=== PATIENT | female | born 1955 | race Caucasian/White ===

== ENCOUNTER 2023-10-08 14:30 | Outpatient (AMB) | payer MEDICARE, MEDICAID, SELFPAY ==
--- NOTE | 2023-10-08 15:12 | A.OFFPSYCH_ITS ---
Intake Intake Visit Reasons: depression, WARD (generalized anxiety disorder) Intake Note: 67 year old woman presenting with history of increased Depression and PTSD with panic attacks seeking medication management evaluation Dump Operator Required: No Allergies No Known Allergies Allergy (Verified 10/08/23 15:47) HPI- Psychiatric Chief Complaint: depression, WARD (generalized anxiety disorder) HPI Narrative: Pt reports she stopped the lexapro because it caused her to feel numb; she reports still feeling anxious; we discussed her taking 2.5 mg of lexapro and see if that helps with anxiety. Pt reports she was in the hospital when last appt scheduled; she was there for kidney stones and she had complications so it was longer than expected; She was then in hospital for c-diff infection. she is feeling better now; she reports coping well overall. she has financial stress. Pt reports she is sleeping well with ambien. denies side effects; she denies any sedation or dizziness. no SI or HI; no marija; no psychosis; Pt very worried bout her 94 yo mother. Pt will see Dr Dung Nicholas for her memory this week. Past Psychiatric History: long history of mood disorder since early . Has struggled with anxiety and depression for most of her adult life; Has been in treatment for years most recently at [facility] [address] [facility] none Panic attacks: Yes Agoraphobia: No Separation anxiety disorder: No Social phobia: No Specific phobia: No Hypochondriasis: No Body dysmorphic disorder: No Obsessive compulsive disorder: No Generalized anxiety: Yes Post traumatic stress disorder: Yes Acute stress disorder: No Previous psychiatric history: Yes Previous inpatient psychiatric hospitalization: Yes Other previous psychiatric treatment programs: none History of suicidal ideation: Yes History of suicide attempt: No Medically hospitalized: Yes History of self injurious behavior: Yes History of violence: No Current/previous psychiatrist: rhona Current/previous therapist: none Subjective Subjective Subjective Medication Compliance: Yes Side effects from medications: No Review of Systems Medical Review of Systems: unchanged Review of Systems Review of Systems Yes all other systems are reviewed and are negative Mental Status Exam Mental Status Exam Narrative: pt neatly and casually dressed in wheelchair due to atroohy and weakness after prolonged c-diff infection Patient Appearance: Appropriate Patient Orientation: Person, Place and Situation Level of Consciousness: Awake Patient Behavior: Appropriate Mood Description: Calm Affect Description: Calm Patient Cognition Impaired: No Ability to Follow Directions: Good Speech Pattern: Clear Memory Description: Episodic Impaired Hallucinations: None Delusions: Not Present Thought Process: Intact and Goal Oriented Thought Content: positive for Intact and positive for Goal Oriented Judgement: Fair Assessment and Plan Assessment & Plan (1) Generalized anxiety disorder: Code(s): F41.1 - Generalized anxiety disorder (2) Major depressive disorder, recurrent, moderate: Status: Acute Code(s): F33.1 - Major depressive disorder, recurrent, moderate (3) Chronic post-traumatic stress disorder (PTSD): Status: Acute Code(s): F43.12 - Post-traumatic stress disorder, chronic Plan continue wellbutrin XL 300mg qam add lexapro 2.5mg daily valium 2 mg qd prn anxiety (reduction from 5mg ) zolpidem 5mg at bedtime return in 3 months referred to [facility] [address] for therapy Medications: New zolpidem 5 mg PO BEDTIME PRN 30 tabs 3RF sleep diazepam 2 mg PO DAILY PRN 30 tabs 2RF sleep escitalopram oxalate (Lexapro) 2.5 mg (1/2 x 5 mg) PO DAILY 15 tabs 3RF bupropion HCl XL (Wellbutrin XL) 300 mg PO QAM 30 tabs 2RF Counseling and coordination of Care Pt. Self Management counseling: Maintenance-social rhythm, Sleep hygiene and General coping skills Medication management counseling: Effectiveness, Side effects, Dosing range, Duration, Drug interaction and Adherence Diagnosis and Prognosis Counseling: Accuracy of diagnosis, Prognosis over time, Impact of diagnosis on life functions, Impact of family relationship and Adequacy of current interventions Details: I spent 30 minutes reviewing the record, seeing the patient and documenting in the medical record. Counseling provided to the patient/caregiver as outlined below. Addressed patient/caregiver concerns regarding current medication regime including effective adherence. Addressed patient/caregiver concerns regarding diagnosis and prognosis including accuracy of diagnosis, prognosis over time, impact of diagnosis. Addressed patient/caregiver concerns regarding impact of recent stressors. [facility] Medical History (Updated 10/08/23 @ 16:08 by Jenni Carey APRN) Fibromyalgia CAD (coronary artery disease) Sjogren's disease Chronic GERD High cholesterol Angina at rest C. difficile diarrhea Kidney stones Surgical History (Updated 10/08/23 @ 15:22 by Jenni Carey APRN) Hx of cholecystectomy Social History: pt lives with BF. she had 2 children; one daughter; lost one son when he was 32 yo from MVA. has a granddaughter age 6 Substance History: none Trauma History: lost son from MVA- he was age 32 - she needed to make life support decision Coding Level of Care Code Est Pt Level 4 (49071) Diagnoses Generalized anxiety disorder F41.1 Major depressive disorder, recurrent, moderate F33.1 Chronic post-traumatic stress disorder (PTSD) F43.12
== END 2023-10-08 15:43 | disposition home or self-care (01) ==
PROVIDERS: PCP Nurse Practitioner Family; Visit Provider Clinical Nurse Specialist Psychiatric/Mental Health
DX: F41.1 Generalized anxiety disorder (principal); F33.1 Major depressive disorder, recurrent, moderate; F43.12 Post-traumatic stress disorder, chronic
CPT/HCPCS: 99214

== ENCOUNTER → 2023-10-08 14:30 | Outpatient (BNVA) | payer MEDICARE, MEDICAID, SELFPAY | PROVIDERS: PCP Nurse Practitioner Family; Visit Provider Clinical Nurse Specialist Psychiatric/Mental Health | DX: F43.10 Post-traumatic stress disorder, unspecified (principal); F41.1 Generalized anxiety disorder; F33.1 Major depressive disorder, recurrent, moderate; F43.12 Post-traumatic stress disorder, chronic | CPT/HCPCS: 99212 ==

== ENCOUNTER 2024-04-20 11:03 | Outpatient (AMB) | payer MEDICARE, MEDICAID, SELFPAY ==
--- NOTE | 2024-04-20 11:15 | MHC.OFFVISPS ---
Intake Intake Visit Reasons: depression Academic Specialist Required: No Allergies No Known Allergies Allergy (Verified 10/08/23 15:47) Medication List - Last Reconciled 04/20/24 by Jenni Carey APRN albuterol sulfate 90 mcg/actuation (Ventolin HFA) inhalation atorvastatin 20 mg PO DAILY bupropion HCl XL 300 mg PO QAM carbidopa-levodopa 25-100 mg tabs PO cevimeline 2 caps PO BID chlorthalidone 25 mg PO DAILY cyclobenzaprine 10 mg PO TID diazepam 2 mg PO DAILY PRN escitalopram oxalate 2.5 mg (1/2 x 5 mg) PO DAILY [id number]-jpplzwozx-cvdympml 200-62.5-25 mcg (Trelegy Ellipta) 1 ea inhalation DAILY isosorbide mononitrate ER 30 mg PO DAILY linaclotide (Linzess) 72 mcg PO QAM meloxicam 15 mg PO DAILY metoprolol succinate ER 50 mg PO DAILY montelukast 10 mg PO DAILY ondansetron HCl 4 mg PO Q8H PRN oxycodone mg PO pregabalin 150 mg PO TID zolpidem 5 mg PO BEDTIME PRN HPI- Psychiatric Chief Complaint: depression HPI Narrative: had successful hip surgery; happy that she has less pain; mood more depressed and anxious; sad about her own mother who has dementia; she sometimes avoids visiting because its too overwhelming but her BF will go see her and check on her; she is getting along well with Bf. she reports more anxiety since decreasing the diazepam and admits to sometimes taking 3 tabs which equals 6 mg when she feels panicky; she denies side effects; she feels depressed, anhedonia, low motivation. she talks about losses - her granddaughter and her good friend . No SI or Hi Past Psychiatric History: long history of mood disorder since early . Has struggled with anxiety and depression for most of her adult life; Has been in treatment for years most recently at [facility] [address] [facility] PHP none Subjective Subjective Subjective Medication Compliance: Yes Side effects from medications: No Review of Systems Medical Review of Systems: unchanged Mental Status Exam Mental Status Exam Patient Appearance: Well Grooomed and Appropriate Patient Orientation: Person, Place, Time and Situation Level of Consciousness: Awake and Appropriate Patient Behavior: Appropriate and Cooperative Mood Description: Anxious and Sad Affect Description: Anxious and Sad Patient Cognition Impaired: No Ability to Follow Directions: Good Speech Pattern: Clear Memory Description: Intact Hallucinations: None Delusions: Not Present Thought Process: Intact Thought Content: positive for Intact Judgement: Good Assessment and Plan Assessment & Plan (1) Chronic post-traumatic stress disorder (PTSD): Status: Acute Code(s): F43.12 - Post-traumatic stress disorder, chronic (2) Major depressive disorder, recurrent, moderate: Status: Acute Code(s): F33.1 - Major depressive disorder, recurrent, moderate Plan increase lexapro to 5 mg daily increase diazepam to 5mg prn anxiety/panic continue wellbutrin xl 300mg daily Medications: New diazepam 5 mg PO DAILY PRN 30 tabs 4RF anxiety zolpidem 5 mg PO BEDTIME PRN 30 tabs 2RF sleep Changed From escitalopram oxalate 2.5 mg (1/2 x 5 mg) PO DAILY 45 tabs 1RF To escitalopram oxalate 5 mg PO DAILY 90 tabs 1RF Refilled bupropion HCl XL 300 mg PO QAM 90 tabs 1RF Discontinued diazepam Discontinued Reason: Doctor's Order 2 mg PO DAILY PRN 30 tabs 2RF sleep Counseling and coordination of Care Pt. Self Management counseling: Maintenance-social rhythm, Mod caffeine/ETOH intake, Sleep hygiene, Behavior activation and General coping skills Medication management counseling: Effectiveness, Side effects, Dosing range, Duration, Drug interaction and Adherence Diagnosis and Prognosis Counseling: Accuracy of diagnosis, Prognosis over time, Impact of diagnosis on life functions, Impact of family relationship, Problematic behaviors secondary to diagnosis and Adequacy of current interventions Details: I spent 40 minutes reviewing the record, seeing the patient and documenting in the medical record. Counseling provided to the patient/caregiver as outlined below. Addressed patient/caregiver concerns regarding current medication regime including effective adherence. Addressed patient/caregiver concerns regarding diagnosis and prognosis including accuracy of diagnosis, prognosis over time, impact of diagnosis. Addressed patient/caregiver concerns regarding impact of recent stressors. [facility] Medical History (Updated 10/08/23 @ 16:08 by Jenni Carey APRN) Fibromyalgia CAD (coronary artery disease) Sjogren's disease Chronic GERD High cholesterol Angina at rest C. difficile diarrhea Kidney stones Surgical History (Updated 10/08/23 @ 15:22 by Jenni Carey APRN) Hx of cholecystectomy Social History: pt lives with . she had 2 children; one daughter; lost one son when he was 32 yo from MVA. has a granddaughter age 6 Substance History: none Trauma History: lost son from MVA- he was age 32 - she needed to make life support decision Coding Level of Care Code Est Pt Level 4 (67791) Therapy 30m w/E&M (56349) Diagnoses Chronic post-traumatic stress disorder (PTSD) F43.12 Major depressive disorder, recurrent, moderate F33.1
== END 2024-04-20 11:37 | disposition home or self-care (01) ==
LOC: HO.HOP 11:03
PROVIDERS: PCP Nurse Practitioner Family; Visit Provider Clinical Nurse Specialist Psychiatric/Mental Health
DX: F43.12 Post-traumatic stress disorder, chronic (principal); F33.1 Major depressive disorder, recurrent, moderate
CPT/HCPCS: 90833; 99214

== ENCOUNTER → 2024-04-20 11:03 | Outpatient (BNVA) | payer MEDICARE, MEDICAID, SELFPAY | PROVIDERS: PCP Nurse Practitioner Family; Visit Provider Clinical Nurse Specialist Psychiatric/Mental Health | DX: F43.12 Post-traumatic stress disorder, chronic (principal); F33.1 Major depressive disorder, recurrent, moderate | CPT/HCPCS: 99212 ==

== ENCOUNTER 2024-10-19 11:04 | Outpatient (AMB) | payer MEDICARE, MEDICAID, SELFPAY ==
--- NOTE | 2024-10-19 11:17 | A.OFFPSYCH_ITS ---
Intake Intake Visit Reasons: depression Salt Maker Required: No Allergies No Known Allergies Allergy (Verified 10/08/23 15:47) Medication List - Last Reconciled 10/19/24 by Jenni Carey APRN albuterol sulfate 90 mcg/actuation (Ventolin HFA) inhalation atorvastatin 20 mg PO DAILY bupropion HCl XL 300 mg PO QAM carbidopa-levodopa 25-100 mg tabs PO cevimeline 2 caps PO BID chlorthalidone 25 mg PO DAILY cyclobenzaprine 10 mg PO TID diazepam 5 mg PO DAILY PRN escitalopram oxalate 5 mg PO DAILY pumqcedpcop-mndbhsqhj-eqnwczls 200-62.5-25 mcg (Trelegy Ellipta) 1 ea inhalation DAILY isosorbide mononitrate ER 30 mg PO DAILY linaclotide (Linzess) 72 mcg PO QAM meloxicam 15 mg PO DAILY metoprolol succinate ER 50 mg PO DAILY montelukast 10 mg PO DAILY ondansetron HCl 4 mg PO Q8H PRN pregabalin 150 mg PO TID zolpidem 5 mg PO BEDTIME PRN HPI- Psychiatric Chief Complaint: depression HPI Narrative: pt here for follow up re: depression, anxiety, and insomnia. Pt struggling with chronic pain- had cortisone shot 2 weeks ago but little relief she is following up with her pcp and ortho specialist she reports her mood and anxiety effected by pain and sleep she ran out of zolpidem yesterday and did not sleep more than an hour last night with medication she can get 6-7 hours of sleep PHQ9= 19 and GAD7= 16 Pt reports passive SI but no plan and no intent; she is future oriented and says she has good support at home pt reports pain is driving force of mood symptoms and she will continue to work with PCP and orthopedics to rememdy she enjoys gardening and her partner's company Past Psychiatric History: long history of mood disorder since early . Has struggled with anxiety and depression for most of her adult life; Has been in treatment for years most recently at [facility] [address] [facility] PHP none Subjective Subjective Subjective Medication Compliance: Yes Side effects from medications: No Review of Systems Medical Review of Systems: unchanged Mental Status Exam Mental Status Exam Patient Appearance: Well Grooomed and Appropriate Patient Orientation: Person, Place, Time and Situation Level of Consciousness: Awake and Appropriate Patient Behavior: Appropriate, Cooperative and Good Eye Contact Mood Description: Cheerful and Anxious Affect Description: Cheerful and Anxious Patient Cognition Impaired: No Ability to Follow Directions: Good Speech Pattern: Clear, Appropriate and Coherent Memory Description: Intact Hallucinations: None Delusions: Not Present Thought Process: Intact and Goal Oriented Thought Content: positive for Intact and positive for Goal Oriented Judgement: Good Assessment and Plan Assessment & Plan (1) Chronic post-traumatic stress disorder (PTSD): Status: Acute Code(s): F43.12 - Post-traumatic stress disorder, chronic (2) Major depressive disorder, recurrent, moderate: Status: Acute Code(s): F33.1 - Major depressive disorder, recurrent, moderate Plan continue meds per below continue with pcp and orthopedic follow up fro pain management return in 6 months Medications: Refilled diazepam 5 mg PO DAILY PRN 30 tabs 4RF anxiety bupropion HCl XL 300 mg PO QAM 90 tabs 1RF escitalopram oxalate 5 mg PO DAILY 90 tabs 1RF zolpidem 5 mg PO BEDTIME PRN 30 tabs 3RF sleep Counseling and coordination of Care Pt. Self Management counseling: Maintenance-social rhythm, Mod caffeine/ETOH intake, Nutrition education and improvement, General coping skills and Problem solving Medication management counseling: Effectiveness, Side effects, Dosing range, Duration, Drug interaction and Adherence Diagnosis and Prognosis Counseling: Accuracy of diagnosis, Prognosis over time, Impact of diagnosis on life functions, Impact of family relationship, Problematic behaviors secondary to diagnosis and Adequacy of current interventions Details: I spent 40 minutes reviewing the record, seeing the patient and documenting in the medical record. Counseling provided to the patient/caregiver as outlined below. Addressed patient/caregiver concerns regarding current medication regime including effective adherence. Addressed patient/caregiver concerns regarding diagnosis and prognosis including accuracy of diagnosis, prognosis over time, impact of diagnosis. Addressed patient/caregiver concerns regarding impact of recent stressors. [facility] Medical History (Updated 10/08/23 @ 16:08 by Jenni Carey APRN) Fibromyalgia CAD (coronary artery disease) Sjogren's disease Chronic GERD High cholesterol Angina at rest C. difficile diarrhea Kidney stones Surgical History (Updated 10/08/23 @ 15:22 by Jenni Carey APRN) Hx of cholecystectomy Social History: pt lives with . she had 2 children; one daughter; lost one son when he was 32 yo from MVA. has a granddaughter age 6 Substance History: none Trauma History: lost son from MVA- he was age 32 - she needed to make life support decision Coding Level of Care Code Est Pt Level 4 (55894) Diagnoses Chronic post-traumatic stress disorder (PTSD) F43.12 Major depressive disorder, recurrent, moderate F33.1
--- OUTSIDE RECORDS SUMMARY | 2024-10-19 12:49 | XMS_ITS | Clinical Summary ---
Author Organization [facility] Address [address] [place] [address] Phone Care Team Providers Care Cooker Operator Name Role Phone Sylvia Holt Primary Care Provider Allergies Active Allergy Reactions Criticality Noted Date Comments Adhesive Tape-Silicones 11/05/2013 Other Reaction(s): Rash/Dermatitis Ciprofloxacin Other 02/04/2013 Codeine 07/19/2008 Divalproex 07/19/2008 Divalproex Sodium 08/16/2023 Levofloxacin 08/16/2023 Metoclopramide 07/19/2008 Sulfa (Sulfonamide Antibiotics) 02/12/2018 Medications aspirin 81 mg EC tablet Take by mouth. Active albuterol HFA (PROAIR HFA ; PROVENTIL HFA ; VENTOLIN HFA) 90 mcg/actuation inhaler Inhale 2 puffs by mouth 4 (four) times a day if needed for shortness of breath or wheezing (Cough). 05/29/20 23 Active atorvastatin (LIPITOR) 20 mg tablet Take 1 tablet (20 mg total) by mouth 1 (one) time each day. 07/02/19 24 Active buPROPion XL (WELLBUTRIN XL) 300 mg 24 hr tablet Take 1 tablet (300 mg total) by mouth 1 (one) time each day in the morning. Active carbidopa-levodop a (SINEMET) 25-100 mg per tablet Take 1 tablet by mouth 3 (three) times a day. Active cevimeline (EVOXAC) 30 mg capsule Take 1 capsule (30 mg total) by mouth 3 (three) times a day. Active cholecalciferol (VITAMIN D-3) 50 mcg (2,000 unit) capsule Take 1 capsule (2,000 Units total) by mouth 1 (one) time each day. Active cyclobenzaprine (FLEXERIL) 10 mg tablet Take 1 tablet (10 mg total) by mouth 1 (one) time each day. 11/24/19 21 Active denosumab (Prolia) 60 mg/mL syringe syringe Inject 1 mL (60 mg total) under the skin every 6 (six) months. 05/15/20 23 Active denosumab (Prolia) 60 mg/mL syringe syringe Inject 1 mL (60 mg total) under the skin. Active diazePAM (VALIUM) 5 mg tablet 04/01/20 23 Active diclofenac (VOLTAREN) 1 % topical gel Apply 4 g topically 2 (two) times a day. 01/24/20 21 Active Boostrix Tdap 2.5-8-5 Lf-mcg-Lf/0.5mL vaccine 08/23/19 23 Active escitalopram (LEXAPRO) 5 mg tablet 01/14/20 23 Active eszopiclone (LUNESTA) 1 mg tablet 09/20/19 22 Active Trelegy Ellipta 200-62.5-25 mcg inhaler Inhale 1 puff (200 mcg total) by mouth 1 (one) time each day. 05/29/20 23 Active fosfomycin (MONUROL) 3 gram packet 03/26/20 23 Active gabapentin (NEURONTIN) 100 mg capsule Take 1 capsule (100 mg total) by mouth at bedtime. 11/01/19 23 Active Linzess 290 mcg capsule Take 1 capsule (290 mcg total) by mouth 1 (one) time each day. 02/23/20 22 Active LORazepam (ATIVAN) 1 mg tablet Take 1 tablet (1 mg total) by mouth if needed. 01/11/20 16 Active meloxicam (MOBIC) 15 mg tablet 03/24/20 23 Active nitrofurantoin, macrocrystal-mono hydrate, (MACROBID) 100 mg capsule 03/22/20 23 Active nitroglycerin (NITROSTAT) 0.[address] 1 tablet (0.4 mg total) under the tongue every 5 (five) minutes if needed for chest pain. 04/20/20 22 Active omeprazole (PriLOSEC) [address] capsule Take 1 capsule (40 mg total) by mouth 1 (one) time each day. 11/04/19 23 Active omeprazole (PriLOSEC) [address] capsule 01/31/20 23 Active ondansetron ODT (ZOFRAN-ODT) 4 mg disintegrating tablet TAKE 1 TABLET BY MOUTH 3 TIMES A DAY NEEDED FOR NAUSEA 11/26/19 23 Active ondansetron (ZOFRAN) 4 mg tablet Take 1 tablet (4 mg total) by mouth. 04/25/20 23 Active pregabalin (LYRICA) 150 mg capsule Take 1 capsule (150 mg total) by mouth 3 (three) times a day. Active tiZANidine (ZANAFLEX) 4 mg tablet Take 1 tablet (4 mg total) by mouth every 6 (six) hours if needed. Active zolpidem (AMBIEN) 5 mg tablet Take 1 tablet (5 mg total) by mouth 1 (one) time each day. 10/24/19 23 Active meloxicam (MOBIC) 15 mg tablet Take 1 tablet (15 mg total) by mouth 1 (one) time each day. Active multivitamin (MULTIPLE VITAMINS ORAL) Take 2 tablets by mouth 1 (one) time each day. Active metoprolol succinate (TOPROL-XL) 50 mg 24 hr tabletIndications :Essential (primary) hypertension TAKE 1 TABLET BY MOUTH EVERY DAY 90 tablet 2 04/23/20 24 Active montelukast (SINGULAIR) 10 mg tabletIndications :Chronic cough TAKE 1 TABLET BY MOUTH AT BEDTIME 90 tablet 3 05/12/20 24 Active linaCLOtide (Linzess) 72 mcg capsule Take 1 capsule (72 mcg total) by mouth 1 (one) time each day. Active ondansetron (ZOFRAN) 4 mg tablet Take 1 tablet (4 mg total) by mouth every 8 (eight) hours if needed for nausea. for up to 10 days. 08/19/19 24 Active oxyCODONE (ROXICODONE) 5 mg immediate release tablet Take 1 tablet (5 mg total) by mouth every 4 (four) hours if needed for severe pain. Active isosorbide mononitrate (IMDUR) 30 mg 24 hr tablet TAKE 1 TABLET BY MOUTH DAILY 90 tablet 3 06/16/20 24 Active lisinopriL (PRINIVIL,ZESTRIL ) 10 mg tablet TAKE 1 TABLET BY MOUTH 1 (ONE) TIME EACH DAY. DOSE INCREASED 90 tablet 1 08/22/19 25 Active DULoxetine (CYMBALTA) [address] capsule TAKE 1 CAPSULE BY MOUTH DAILY 90 capsule 1 09/05/19 25 Active Linzess 72 mcg capsuleIndication s:Constipation, unspecified constipation type TAKE 1 CAPSULE BY MOUTH EVERY DAY 90 capsule 2 10/15/19 25 Active Linzess 72 mcg capsule Take 1 capsule (72 mcg total) by mouth 1 (one) time each day. 02/05/20 23 025 Discontinued Active Problems Problem Noted Date Diagnosed Date AI (aortic insufficiency) 12/28/2021 Chest pain 11/25/2020 Overview (08/16/2023): Chest pain Assessment & Plan (05/27/2024 7:18 AM EST): Recent ischemic evaluation in the form of a nuclear stress test in August 2023 was negative for any evidence of ischemia or infarct. Likely her chest pain is related to significantly elevated blood pressures as her symptoms correlate with hypertension per the patient. As outlined below, introducing lisinopril 5 mg with plan to titrate as needed for goal of less than 130/80 Orders: ECG 12 lead lisinopriL (PRINIVIL,ZESTRIL) 5 mg tablet; Take 1 tablet (5 mg total) by mouth 1 (one) time each day. Basic metabolic panel; Future Liver lesion, right lobe 09/28/2020 Overview (08/16/2023): 09/28/20 - There is an 11 x 10 x 8 mm poorly defined echogenic focus posteriorly in the right lobe of liver. This probably represents either a hemangioma or focal fatty infiltration. Six-month follow-up ultrasound is suggested to document stability. Panic disorder 04/09/2018 Anxiety 03/05/2018 CAD (coronary artery disease) 03/05/2018 Overview (08/16/2023): S/p stent Assessment & Plan (09/09/2024 9:34 AM EDT): Orders: Regadenoson (Lexiscan) nuclear stress test with myocardial perfusion; Future B-type natriuretic peptide; Future Basic metabolic panel; Future Assessment & Plan (05/27/2024 7:18 AM EST): She denies anginal symptoms at this time. Instructed to call 911 or go to the emergency room should the patient begin to experience chest pain or pressure lasting greater than 10 minutes does not resolve with rest. We will update fasting lipid profile to further evaluate appropriate lipid control. Goal LDL less than 70. Orders: Lipid panel; Future Lipid panel Chronic low back pain 03/05/2018 Overview (08/16/2023): Failed back syndrome Fibromyalgia 03/05/2018 Genital herpes 03/05/2018 Hyperlipidemia 03/05/2018 Hypertension 03/05/2018 Assessment & Plan (05/27/2024 7:18 AM EST): Poorly controlled during today's exam with a reading of 180/100. Recheck later on during our office visit did not reveal a reduction in her blood pressure. She currently denies any headache, blurred vision or tinnitus. I am starting her on lisinopril 5 mg. I have asked her to come back in 1 week for a blood pressure check and to bring her home monitor with her for correlation. She will update BMP. Educated on the importance of diet lifestyle to help further assist in reducing blood pressure. The patient was encouraged to follow low-salt low-fat diet, make purposeful strides towards weight loss, and engage in routine aerobic exercise as tolerated. Orders: lisinopriL (PRINIVIL,ZESTRIL) 5 mg tablet; Take 1 tablet (5 mg total) by mouth 1 (one) time each day. Basic metabolic panel; Future Lipid panel; Future Lipid panel Insomnia 03/05/2018 Kidney stones 03/05/2018 Lumbar spinal stenosis 03/05/2018 Osteopenia 03/05/2018 Restless legs 03/05/2018 Sjogren's syndrome (CMS/HCC V24) 03/05/2018 COPD (chronic obstructive pu lmonary disease) ([facility] V24, [facility] V28) 02/12/2018 GERD (gastroesophageal reflux disease) 8 Pulmonary nodules 02/12/2018 Depression 11/02/2016 Sciatica 09/07/2009 Encounters Date Type Department Care Team Description 09/09/2024 9:43 AM EDT - 09/09/2024 11:59 PM EDT Hospital Encounter [facility] Xray [address] [place] [address] WANG (dyspnea on exertion) Discharge Disposition: Home or Self Care 09/09/2024 8:50 AM EDT Office Visit [facility] [address] [place] [id number] Kadeem Yang MD WANG (dyspnea on exertion) (Primary Dx); Coronary artery disease involving [place] coronary artery of [place] heart with other form of angina pectoris ([facility] V24); Claudication ([facility] V24) 08/09/2024 12:46 PM EST - 08/09/2024 11:59 PM EST Hospital Encounter [facility] Xray [address] [place] [address] Radiculopathy, lumbar region; Spinal stenosis, lumbar region with neurogenic claudication Discharge Disposition: Home or Self Care 08/09/2024 10:52 AM EST - 08/09/2024 11:59 PM EST Hospital Encounter [facility] MRI [address] [place] [address] Radiculopathy, lumbar region Discharge Disposition: Home or Self Care from Last 3 Months Immunizations Name Administration Dates Next Due Influenza Quadravalent, 0.5m l (Fluad) 65yo and older 03/19/2022 Influenza Quadravalent, 0.5m l (Fluzone High-dose) 65yo and older 04/05/2021,02/15/2021 Influenza Quadravalent, MDCK , 0.5ml, preservative free (Flucelvax) 6mo and older 06/30/2018 Sequenom SARS-CoV-2 COVID-19, mRNA, LNP-S, preservative free 09/13/2021,10/23/2020,10/02/2020 Pneumococcal conjugate 13 va lent (Prevnar 13, PCV13) 2mo and older 08/11/2018,11/02/2016 Pneumococcal polysaccharide 23 valent (Pneumovax 23) 2yo and older 11/02/2016,07/29/2012 Tdap Tetanus diptheria acell ular pertussis (Boostrix; Adacel) 7yo and older 05/14/2012 Surgical History Surgery Date Site/Laterality Comments CHOLECYSTECTOMY PROCEDURE: HISTORICAL CHOLECYSTECTOMY SECTION PROCEDURE: HISTORICAL DELIVERY COLONOSCOPY 05/13/2019 PROCEDURE: HISTORICAL COLONOSCOPY; COMMENT: Dr Hoang - normal, repeat 5 years OTHER SURGICAL HISTORY 04/02/2016 PROCEDURE: DE EGD BALLOON DILATION ESOPHAGUS <30 MM DIAM; COMMENT: Dr. Hoang - esophageal nodules prox esophagus, bx normal. Dilated to 20. ESOPHAGOGASTRODUODENOSCOPY 03/08/2021 PROCEDURE: DE ESOPHAGOGASTRODUODENOSCOPY TRANSORAL DIAGNOSTIC; COMMENT: Dr. Bloom -duodenal mucosa lymphangiectasia; retained food; normal gastric and esophageal mucosa. OTHER SURGICAL HISTORY 04/26/2021 PROCEDURE: GASTRIC EMPTYNG IMAG STD W/SM BWL TRANSIT; COMMENT: normal Medical History Medical History Date Comments CAD (coronary artery disease) 03/05/2018 DX :CAD (coronary artery disease) Chronic low back pain 03/05/2018 DX:Chronic low back pain Hyperlipidemia 03/05/2018 DX:Hyperlipidemi a Lumbar spinal stenosis 03/05/2018 DX:Lumbar spinal stenosis Osteopenia 03/05/2018 DX:Osteopenia Kidney stones 03/05/2018 DX:Kidney stones Genital herpes 03/05/2018 DX:Genital herpe s Restless legs 03/05/2018 DX:Restless legs Sjogren's syndrome ([facility] V24) 03/05/2018 DX:Sjogren's syndrome ([facility]) Anxiety 03/05/2018 DX:Anxiety Insomnia 03/05/2018 DX:Insomnia Hypertension 03/05/2018 DX:Hypertension Fibromyalgia 03/05/2018 DX:Fibromyalgia COPD (chronic obstructive pu lmonary disease) ([facility] V24, [facility] V28) 02/12/2018 DX:COPD (chronic o bstructive pulmonary disease) ([facility]) Depression 11/02/2016 DX:Depression GERD (gastroesophageal reflux disease) 02/12/2018 DX:GERD (gastroesophageal reflux disease) Panic disorder 04/09/2018 DX:Panic disorde r Sciatica 09/07/2009 DX:Sciatica Liver lesion, right lobe 09/28/2020 DX:Live r lesion, right lobe; COMMENT: There is an 11 x 10 x 8 mm poorly defined echogenic focus posteriorly in the right lobe of liver. This probably represents either a hemangioma or focal fatty infiltration. Six-month follow-up ultrasound is suggested to document stability. Family History Medical History Relation Name Comments Colon polyps Father Heart failure Father Colon cancer Maternal Grandmother No Known Problems Mother Relation Name Status Comments Father Maternal Grandmother Mother Alive Social History Tobacco Use Types Packs/Day Years Used Date Smoking Tobacco: Former Cigarettes Smokeless Tobacco: Never Alcohol Use Standard Drinks/Week Comments Yes 0 (1 standard drink = 0.6 oz pur e alcohol) occasional wine Comments Unknown Sex and Gender Information Value Date Recorded Sex Assigned at Not on file Legal Sex Female 11:05 AM EST Gender Identity Not on file Sexual Orientation Not on file Obstetrics History Last Filed Vital Signs Vital Sign Reading Time Taken Comments Blood Pressure 100/66 09/09/2024 8:52 AM EDT Pulse 84 09/09/2024 8:52 AM EDT Temperature - - Respiratory Rate - - Oxygen Saturation 99% 09/09/2024 8:52 AM EDT Inhaled Oxygen Concentration - - Weight 70.8 kg (156 lb) 09/09/2024 8:52 AM EDT Height 154.9 cm (5' 1 ) 09/09/2024 8:52 AM EDT Body Mass Index 29.48 09/09/2024 8:52 AM EDT Plan of Treatment Upcoming Encounters Date Type Department Care Team (Late st Contact Info) Description 10/20/2024 7:30 AM EDT Ancillary Procedure [facility] [address] [phone] 10/27/2024 9:15 AM EDT Ancillary Procedure [facility] [address] [facility] [address] [place] [address] Health Maintenance Due Date Last Done Comments Zoster Vaccines (2 of 2) 04/12/2021 02/15/2021 Depression Screening 05/26/2022 Falls Risk Assessment 05/26/2022 Hepatitis C Screening 05/26/2022 Medicare Annual Wellness Visit 05/26/2022 Social Influencers of Health Screening 05/26/2022 Breast Cancer Screening 04/08/2024 04/08/2022, 05/14 Colorectal Cancer Screening: Colonoscopy 05/13/2024 05/13/2019 COVID-19 Vaccine ( season) 2024 06/24/2024, 03/19/2022, 09/13/2021, Additional history exists Hypertension/CHF/CAD Annual BMP Blood Test 09/09/2025 09/09/2024, 08/06/2024, 01/31/2024, Additional history exists Cholesterol Screening (Lipid Panel) 09/09/2029 09/09/2024, 09/20/2020 Osteoporosis Screening (Bone Density Screening) 04/03/2031 04/03/2021, 12/25/2017 DTaP,Tdap,and Td Vaccines (4 - Td or Tdap) 08/22/2032 08/22/2022, 11/15/2018, 05/14/2012 Pneumococcal Vaccine: 50+ Years Completed 08/22/2022, 08/11/2018, 11/02/2016, Additional history exists Influenza Vaccine Completed 06/24/2024, , 04/05/2021, Additional history exists RSV Immunization Adult Patients Completed 06/24/2024 HIB Vaccines Aged Out No longer eligi ble based on patient's age to complete this topic HPV Vaccines Aged Out No longer eligi ble based on patient's age to complete this topic Hepatitis A Vaccines Aged Out No long er eligible based on patient's age to complete this topic Hepatitis B Vaccines Aged Out No long er eligible based on patient's age to complete this topic IPV Vaccines Aged Out No longer eligi ble based on patient's age to complete this topic MMR Vaccines Aged Out No longer eligi ble based on patient's age to complete this topic Meningococcal ACWY Vaccine Aged Out N o longer eligible based on patient's age to complete this topic Meningococcal B Vaccine Aged Out No l onger eligible based on patient's age to complete this topic RSV Immunization Patients Under 20 months Aged Out No longer eligible based on patient's age to complete this topic Varicella Vaccines Aged Out No longer eligible based on patient's age to complete this topic Procedures Procedure Name Priority Date/Time Associated Diagnosis Comments BASIC METABOLIC PANEL Routine 09/09/2024 10:11 AM EDT WANG (dyspnea on exertion) Coronary artery disease involving [place] coronary artery of [place] heart with other form of angina pectoris ([facility]/HCC V24) B-TYPE NATRIURETIC PEPTIDE Routine 09/09/2024 10:11 AM EDT WANG (dyspnea on exertion) Coronary artery disease involving [place] coronary artery of [place] heart with other form of angina pectoris (CMS/HCC V24) LIPID PANEL WITH REFLEX TO DIRECT LDL Routine 09/09/2024 10:11 AM EDT Hyperlipemia XR CHEST 2 VIEWS Routine 09/09/2024 10:0 0 AM EDT WANG (dyspnea on exertion) XR LUMBAR SPINE 2-3 VIEWS Routine 08/09/2024 1:04 PM EST Radiculopathy, lumbar region Spinal stenosis, lumbar region with neurogenic claudication MR LUMBAR SPINE WO AND W CONTRAST Routine 08/09/2024 12:47 PM EST Radiculopathy, lumbar region [facility] SCREENING DIGITAL Routine 04/08/2022 8:22 AM EDT Encounter for screening mammogram for malignant neoplasm of breast COLONOSCOPY Routine 05/13/2019 [facility] DEXA AXIAL SKELETON Routine 12/25/2017 10:37 AM EDT Encounter for screening for osteoporosis from Last 3 Months or Most Recently Relevant to Health Maintenance Results * Lipid panel with reflex to direct LDL (09/09/2024 10:11 AM EDT) Pathologist [facility] Cholesterol 137 0 - 200 mg/dL LAB CHEMISTRY METHOD 09/09/2024 1:03 PM EDT [facility] Triglycerides 122 0 - 150 mg/dL LAB CHEMISTRY METHOD 09/09/2024 1:03 PM EDT [facility] HDL 69 >=40 mg/dL LAB CHEMISTRY METHOD 09/09/2024 1:03 PM EDT [facility] LDL Calculated 44 0 - 100 mg/dL LAB CHEMISTRY METHOD 09/09/2024 1:03 PM EDT [facility] VLDL Cholesterol Jorge 24.4 mg/dL LAB CHEMISTRY METHOD 09/09/2024 1:03 PM EDT [facility] Non HDL Chol. (LDL+VLDL) 68 <145 mg/dL LAB CHEMISTRY METHOD 09/09/2024 1:03 PM EDT [facility] Chol/HDL Ratio 2.0 0.0 - 4.4 LAB CHEMISTRY METHOD 09/09/2024 1:03 PM EDT [facility] Blood Venous blood specimen / Unknown Venipuncture / Unknown 09/09/2024 10:11 AM EDT 09/09/2024 11:32 AM EDT Naomi Cherry NP LAB BLOOD ORDERABLES F inal Result [facility] [address] [place] [address], [place] [phone] * B-type natriuretic peptide (09/09/2024 10:11 AM EDT) BNP 9 <=100 pcg/mL LAB CHEMISTRY METHOD 09/09/2024 1:42 PM EDT [facility] Blood Venous blood specimen / Unknown Venipuncture / Unknown 09/09/2024 10:11 AM EDT 09/09/2024 11:38 AM EDT Kadeem Yang MD LAB BLOOD ORDERABLES Melinda l Result [facility] [address] [place] [address], [place] [phone] * (ABNORMAL) Basic metabolic panel (09/09/2024 10:11 AM EDT) Sodium 138 133 - 145 mmol/L LAB CHEMISTRY METHOD 09/09/2024 2:42 PM [facility] Potassium 4.5 3.5 - 5.5 mmol/L LAB CHEMISTRY METHOD 09/09/2024 2:42 PM [facility] Chloride 110 96 - 110 mmol/L LAB CHEMISTRY METHOD 09/09/2024 2:42 PM [facility] CO2 25 21 - 32 mmol/L LAB CHEMISTRY METHOD 09/09/2024 2:42 PM [facility] Anion Gap 3 3 - 11 LAB CHEMISTRY METHOD 09/09/2024 2:42 PM [facility] Glucose 92 70 - 100 mg/dL LAB CHEMISTRY METHOD 09/09/2024 2:42 PM [facility] BUN 23 5 - 25 mg/dL LAB CHEMISTRY METHOD 09/09/2024 2:42 PM [facility] Creatinine 0.93 0.50 - 1.10 mg/dL LAB CHEMISTRY METHOD 09/09/2024 2:42 PM [facility] eGFR 66 >=60 mL/min/1. 73m2 LAB CHEMISTRY METHOD 09/09/2024 2:42 PM [facility] Comment:Calculation based on the??Chronic Kidney Disease Epidemiology Collaboration (CKD-EPI) equation refit??without adjustment for race. BUN/Creatinine Ratio 24.7 LAB CHEMISTRY METHOD 09/09/2024 2:42 PM [facility] Calcium 8.4(L) 8.5 - 10.5 mg/dL LAB CHEMISTRY METHOD 09/09/2024 2:42 PM [facility] Blood Venous blood specimen / Unknown Venipuncture / Unknown 09/09/2024 10:11 AM EDT 09/09/2024 11:32 AM EDT us Kadeem Yang MD LAB BLOOD ORDERABLES Melinda zoraida Result [facility] [address] [place] [address], [place] [phone] * XR Chest 2 Views (09/09/2024 10:00 AM EDT) Anatomical Region Laterality Modality Body Radiographic Yun ging 09/09/2024 10:0 1 AM EDT Impressions 09/09/2024 10:02 AM EDT Discoid atelectasis laterally at the left lung base. ??The lungs are otherwise clear. Code 62673 -------- FINAL REPORT -------- Dictated By: Nena Christopher Dictated Date: 09/09/2024 10:01 ET Assigned Physician: Nena Christopher Reviewed and Electronically Signed By: Nena Christopher Signed Date: 09/09/2024 10:02 ET Workstation ID: [id number] Transcribed By: Self Edit Transcribed Date: 09/09/2024 10:01 ET Narrative 09/09/2024 10:02 AM EDT HISTORY: The patient is a 69-year-old female with rales. FINDINGS: PA and lateral radiographs of the chest demonstrate degenerative changes and dextroscoliosis of the thoracic spine as also seen on the prior study performed 11/24/2022. ??The cardiac and mediastinal contours are within normal limits. ??Discoid atelectasis is present at the lateral aspect of the left lung base. ??The lungs are otherwise clear and the costophrenic angles are sharp. Partially included on this study is posterior fixation hardware in the lumbar spine. Procedure Note Nena Christopher MD - 09/09/2024 HISTORY: The patient is a 69-year-old female with rales. FINDINGS: PA and lateral radiographs of the chest demonstrate degenerativechanges and dextroscoliosis of the thoracic spine as also seen on theprior study performed 11/24/2022. The cardiac and mediastinal contours arewithin normal limits. Discoid atelectasis is present at the lateralaspect of the left lung base. The lungs are otherwise clear and thecostophrenic angles are sharp. Partially included on this study is posterior fixation hardware in thelumbar spine. IMPRESSION: Discoid atelectasis laterally at the left lung base. The lungs areotherwise clear. Code 51085 -------- FINAL REPORT -------- Dictated By: Nena Christopher Dictated Date: 09/09/2024 10:01 ET Assigned Physician: Nena Christopher Reviewed and Electronically Signed By: Nena Christopher Signed Date: 09/09/2024 10:02 ET Workstation ID: [id number] Transcribed By: Self Edit Transcribed Date: 09/09/2024 10:01 ET us Kadeem Yang MD IMG XR PROCEDURES Final R esult * XR Lumbar Spine 2-3 Views (08/09/2024 1:04 PM EST) Anatomical Region Laterality Modality Spine, L-spine Radiographic Yun ging 08/10/2024 8:44 AM EST Impressions 08/10/2024 8:53 AM EST No acute findings. The patient is seen to have undergone previous posterior fusion at L4-S1. Grade 1, 5.5 mm anterior spondylolisthesis of L3 relative to L4 and grade 1, 4.5 mm anterior spondylolisthesis of L4 relative to L5. There is degenerative disc disease at the L2-3 and L3-4 levels. Code 70083 -------- FINAL REPORT -------- Dictated By: Nena Christopher Dictated Date: 08/10/2024 08:44 ET Assigned Physician: Nena Christopher Reviewed and Electronically Signed By: Nena Christopher Signed Date: 08/10/2024 08:53 ET Workstation ID: [id number] Transcribed By: Self Edit Transcribed Date: 08/10/2024 08:44 ET Narrative 08/10/2024 8:53 AM EST HISTORY: The patient is a 69-year-old female with low back pain. FINDINGS: AP, lateral, and coned-down spot lateral views of the lumbosacral spine are obtained. The study demonstrates that the T12 ribs appear rudimentary. The vertebral body immediately below this is designated L1 for consistency in nomenclature with the MRI performed earlier the same day. The patient is seen to have undergone previous posterior fusion at the L4-5 and L5-S1 levels, with placement of a disc spacer at L5-S1 and a spinous process spacer also at L4-5. The surgical hardware appears well-positioned and intact. There is grade 1, 5.5 mm anterior spondylolisthesis of L3 relative to L4 and grade 1, 4.5 mm anterior spondylolisthesis of L4 relative to L5. No fracture is seen. There is narrowing of the L2-3 and L3-4 disc spaces consistent with degenerative disc days. The patient is seen to have undergone unilateral hip replacement surgery; laterality cannot be determined as this is visible only on the coned-down spot lateral view and not on the AP view. Procedure Note Nena Christopher MD - 08/10/2024 HISTORY: The patient is a 69-year-old female with low back pain. FINDINGS: AP, lateral, and coned-down spot lateral views of thelumbosacral spine are obtained. The study demonstrates that the T12 ribsappear rudimentary. The vertebral body immediately below this isdesignated L1 for consistency in nomenclature with the MRI performedearlier the same day. The patient is seen to have undergone previousposterior fusion at the L4-5 and L5-S1 levels, with placement of a discspacer at L5-S1 and a spinous process spacer also at L4-5. The surgicalhardware appears well-positioned and intact. There is grade 1, 5.5 mmanterior spondylolisthesis of L3 relative to L4 and grade 1, 4.5 mmanterior spondylolisthesis of L4 relative to L5. No fracture is seen.There is narrowing of the L2-3 and L3-4 disc spaces consistent withdegenerative disc days. The patient is seen to have undergone unilateral hip replacement surgery;laterality cannot be determined as this is visible only on the coned-downspot lateral view and not on the AP view. IMPRESSION: No acute findings. The patient is seen to have undergone previousposterior fusion at L4-S1. Grade 1, 5.5 mm anterior spondylolisthesis ofL3 relative to L4 and grade 1, 4.5 mm anterior spondylolisthesis of [id number] to L5. There is degenerative disc disease at the L2-3 and L3-4levels. Code 13447 -------- FINAL REPORT -------- Dictated By: Nena Christopher Dictated Date: 08/10/2024 08:44 ET Assigned Physician: Nena Christopher Reviewed and Electronically Signed By: Nena Christopher Signed Date: 08/10/2024 08:53 ET Workstation ID: [id number] Transcribed By: Self Edit Transcribed Date: 08/10/2024 08:44 ET José Luis Lewis DO IMG XR PROCEDURES Final Result * MR Lumbar Spine wo and w Contrast (08/09/2024 12:47 PM EST) Anatomical Region Laterality Modality L-spine, Spine Magnetic Resonan ce 08/10/2024 8:11 AM EST Impressions 08/10/2024 8:19 AM EST 1. ??Posterior fusion L4-S1. 2. ??Multilevel degenerative changes. ??The most significant finding is severe spinal and high-grade bilateral foraminal stenosis at L3-4. -------- FINAL REPORT -------- Dictated By: Rex Smith Dictated Date: 08/10/2024 08:11 ET Assigned Physician: Rex Smith Reviewed and Electronically Signed By: Rex Smith Signed Date: 08/10/2024 08:19 ET Workstation ID: [id number] Transcribed By: Self Edit Transcribed Date: 08/10/2024 08:11 ET Narrative 08/10/2024 8:19 AM EST PROCEDURE: MRI of the lumbar spine with intravenous contrast. HISTORY: RADICULOPATHY, SPINAL STENOSIS. TECHNIQUE: Sagittal and axial multisequence MRI of the lumbar spine with and without intravenous contrast administration. IV contrast dose: 15 mL Dotarem from a 15 mL vial with 0 mL discarded. COMPARISON: CT abdomen and pelvis 03/19/2023. Radiographs 08/09/2024. FINDINGS: Postsurgical scarring in the midline subcutaneous fat in the lower lumbar region. ??Prominent lower lumbar and sacral paraspinous muscular atrophy. ??Small T2 hyperintense lesions in the left renal cortex suggesting cysts. ??Mild bilateral renal cortical atrophy. Posterior umu and pedicle screw fusion hardware L4-S1. ??Mild anterolisthesis at L3-4 and L4-5. ??Modic endplate changes at L2-3. ??Inferior endplate irregularity and mild height loss at L3. ??No concerning marrow infiltrative lesion. ??Mild Baastrup's changes. Normal position of the conus at L1. ??No abnormal enhancement of the conus or nerve roots of the cauda equina. Lumbar disc levels: L1-2: Only imaged in the sagittal plane. ??Minimal endplate and facet irregularity without spinal or foraminal stenosis. L2-3: Moderate disc space height loss and endplate irregularity, more prominent on the right. ??Small symmetric disc bulge. ??Mild widening of the facet joints suggesting hypermobility, with mild right and minimal left facet arthropathy. ??Mild right foraminal stenosis. ??Mild spinal stenosis. L3-4: Mild anterolisthesis. ??Moderate endplate irregularity. ??Small symmetric disc bulge. ??Facet joints partially obscured by susceptibility artifact. ??There is widening of the right facet joint and right-sided ligamentum flavum hypertrophy suggesting facet joint hypermobility. ??Severe spinal stenosis. ??Moderate- severe right greater than left foraminal stenosis. L4-5: Fusion level. ??Mild anterolisthesis. ??Moderate endplate irregularity and disc space height loss. ??Facet joints obscured by susceptibility artifact. ??No foraminal stenosis. ??Mild-moderate spinal stenosis. L5-S1: Mild endplate irregularity. ??Posterior fusion. ??Facet joints and right neural foramen obscured by susceptibility artifact. ??Slight widening of the left facet joint suggesting mild hypermobility. ??No spinal stenosis. ??No significant left foraminal stenosis. Procedure Note Rex Smith MD - 08/10/2024 PROCEDURE: MRI of the lumbar spine with intravenous contrast. HISTORY: RADICULOPATHY, SPINAL STENOSIS. TECHNIQUE: Sagittal and axial multisequence MRI of the lumbar spine withand without intravenous contrast administration. IV contrast dose: 15 mL Dotarem from a 15 mL vial with 0 mL discarded. COMPARISON: CT abdomen and pelvis 03/19/2023. Radiographs 08/09/2024. FINDINGS: Postsurgical scarring in the midline subcutaneous fat in the lower lumbarregion. Prominent lower lumbar and sacral paraspinous muscular atrophy.Small T2 hyperintense lesions in the left renal cortex suggesting cysts.Mild bilateral renal cortical atrophy. Posterior umu and pedicle screw fusion hardware L4-S1. Mildanterolisthesis at L3-4 and L4-5. Modic endplate changes at L2-3.Inferior endplate irregularity and mild height loss at L3. No concerningmarrow infiltrative lesion. Mild Baastrup's changes. Normal position of the conus at L1. No abnormal enhancement of the conusor nerve roots of the cauda equina. Lumbar disc levels: L1-2: Only imaged in the sagittal plane. Minimal endplate and facetirregularity without spinal or foraminal stenosis. L2-3: Moderate disc space height loss and endplate irregularity, moreprominent on the right. Small symmetric disc bulge. Mild widening of thefacet joints suggesting hypermobility, with mild right and minimal leftfacet arthropathy. Mild right foraminal stenosis. Mild spinalstenosis. L3-4: Mild anterolisthesis. Moderate endplate irregularity. Smallsymmetric disc bulge. Facet joints partially obscured by susceptibilityartifact. There is widening of the right facet joint and right-sidedligamentum flavum hypertrophy suggesting facet joint hypermobility.Severe spinal stenosis. Moderate-severe right greater than left foraminalstenosis. L4-5: Fusion level. Mild anterolisthesis. Moderate endplate irregularityand disc space height loss. Facet joints obscured by susceptibilityartifact. No foraminal stenosis. Mild-moderate spinal stenosis. L5-S1: Mild endplate irregularity. Posterior fusion. Facet joints andright neural foramen obscured by susceptibility artifact. Slight wideningof the left facet joint suggesting mild hypermobility. No spinalstenosis. No significant left foraminal stenosis. IMPRESSION: 1. Posterior fusion L4-S1. 2. Multilevel degenerative changes. The most significant finding issevere spinal and high-grade bilateral foraminal stenosis at L3-4. -------- FINAL REPORT -------- Dictated By: Rex Smith Dictated Date: 08/10/2024 08:11 ET Assigned Physician: Rex Smith Reviewed and Electronically Signed By: Rex Smith Signed Date: 08/10/2024 08:19 ET Workstation ID: [id number] Transcribed By: Self Edit Transcribed Date: 08/10/2024 08:11 ET José Luis Lewis DO IMG MRI PROCEDURES Final Result * ADDI SCREENING DIGITAL (04/08/2022 8:22 AM EDT) Anatomical Region Laterality Modality Mammography 04/05/2022 10:3 8 AM EDT Narrative 04/08/2022 8:22 AM EDT [facility] Diagnostic Imaging Department [address] [place] [address] Patient: ??ZOE WEINSTEIN ?/Age/Sex: 1955 - 66 - F Unit#: ??[id number] ? Location/Status: ??SPDIMAM/PRE CLI ? Mnemonic/Ordering Site: ??DIGSC/SPMAM Ordering Physician: ??KAPIL NESBITT MD Addi Screening Digital - 04/07/221118 EXAM: Addi Screening Digital EXAM DATE AND TIME: 04/07/2022 11:29 AM HISTORY: ??Annual screening mammography. ??Right breast biopsies most recent of which was in 2011. COMPARISON: ??05/14/2018 through 02/19/2014 TECHNIQUE: CC and MLO views of both breasts were obtained using full field digital mammography. ??Exaggerated lateral CC view of the left breast is performed. ??Bilateral digital breast tomosynthesis was performed in the MLO projection. Computer aided detection with the Cubiez 7.2-H was employed. Examination is technically difficult as patient is unsteady on feet and kyphotic. TISSUE DENSITY: a. The breasts are almost entirely fatty. FINDINGS: There are stable biopsy clips within the superior lateral right breast. In the posterior right breast 6 cm straight back from the nipple there are developing nodular asymmetries directly anterior to a calcification the largest nodular component of which measures 6 x 5 mm. The left breast is stable without suspicious masses, grouped microcalcifications, or areas of architectural distortion. ??Bilateral breasts have scattered calcifications. ??The skin and vascularity are unremarkable. IMPRESSION: Developing asymmetric densities in the posterior right breast requiring spot compression CC and mediolateral view as well as CC tomography. ??The left breast is stable with no evidence of malignancy. A negative mammogram in the presence of a clinically suspicious palpable abnormality does not preclude the possibility of malignancy or alter the indications for biopsy. BI-RADS: ??Category 0: Incomplete - Need Additional Imaging Evaluation RECOMMENDATION(S): 1: Special mammographic view(s) needed RIGHT as soon as possible 98988, 45027 3340F, 7025F Dictating Physician: ??BARNEY WOODS MD Electronically Signed by: ??BARNEY WOODS MD Dic Date/Time: ??04/08/22812 Sign date/Time: ??04/08/22821 Procedure Note Jana Woods MD - 06/06/2022 [facility] Diagnostic Imaging Department [address] [place] [address] Patient: ZOE WEINSTEIN /Age/Sex: 1955 - 66 - F Unit#: [id number] Location/Status: SPDIMAM/PRE CLI Mnemonic/Ordering Site: [facility] Ordering Physician: KAPIL NESBITT MD [facility] Screening Digital - 04/07/22 111 EXAM: [facility] Screening Digital EXAM DATE AND TIME: 04/07/2022 11:29 AM HISTORY: Annual screening mammography. Right breast biopsies most recentof which was in 2011. COMPARISON: 05/14/2018 through 02/19/2014 TECHNIQUE: CC and MLO views of both breasts were obtained using fullfield digital mammography. Exaggerated lateral CC view of the left breast is performed. Bilateral digital breast tomosynthesis was performed in theMLO projection. Computer aided detection with the Cubiez 7.2-H wasemployed. Examination is technically difficult as patient is unsteady on feet and kyphotic. TISSUE DENSITY: a. The breasts are almost entirely fatty. FINDINGS: There are stable biopsy clips within the superior lateral right breast. In the posterior right breast 6 cm straight back from the nipple thereare developing nodular asymmetries directly anterior to a calcification thelargest nodular component of which measures 6 x 5 mm. The left breast is stable without suspicious masses, grouped microcalcifications, or areas of architectural distortion. Bilateralbreasts have scattered calcifications. The skin and vascularity areunremarkable. IMPRESSION: Developing asymmetric densities in the posterior right breast requiringspot compression CC and mediolateral view as well as CC tomography. The leftbreast is stable with no evidence of malignancy. A negative mammogram in the presence of a clinically suspicious palpable abnormality does not preclude the possibility of malignancy or alter the indications for biopsy. BI-RADS: Category 0: Incomplete - Need Additional Imaging Evaluation RECOMMENDATION(S): 1: Special mammographic view(s) needed RIGHT as soon as possible 83611, 72465 3340F, 7026F Dictating Physician: BARNEY WOODS MD Electronically Signed by: BARNEY WOODS MD Dic Date/Time: 04/08/22812 Sign date/Time: 04/08/22821 Kapil Nesbitt MD IMG BI PROCEDURES Final Result * Colonoscopy (05/13/2019) Colonoscopy No interpretation , abstracted Comment:Dr. Hoang - normal, repeat 5 years Anatomical Region Laterality Modality Other us Historical Provider HEALTH MAINTENANCE Final Result * [facility] DEXA AXIAL SKELETON (12/25/2017 10:37 AM EDT) Anatomical Region Laterality Modality Mammography 12/25/2017 9:34 AM EDT Narrative 12/25/2017 10:37 AM EDT [facility] Diagnostic Imaging Department [address] [place], [place] [id number] Patient: ??ZOE WEINSTEIN ?/Age/Sex: 1955 - 62 - F Unit#: ??[id number] ? Location/Status: ??SPDIMAM/REG CLI ? Mnemonic/Ordering Site: ??MAMDEXAAX/SPMAM Ordering Physician: ??GRAYSON NAPIER MD Addi Dexa Axial Skeleton - 12/25/17 - 1014 HISTORY: ??The patient is a 62-year-old postmenopausal female with clinical concern for metabolic bone disease. FINDINGS: ??Dual energy x-ray absorptiometry of the lumbar spine and femurs is performed. The mean bone mineral density at L1-2 is 0.956 gm/cm2 which is 82% of that of young normals and 102% of that of age matched controls. This yields a T- score of -1.7 and a Z-score of 0.2 which is diagnostic of osteopenia. The mean bone mineral density of the femurs bilaterally is 0.659 gm/cm2 which is 65% of that of young normals and 80% of that of age matched controls. ??This yields a T-score of -2.8 and a Z-score of -1.3 which is diagnostic of osteoporosis. IMPRESSION: 1. Osteoporosis. ??There has been a decrease of 4.5% in bone mineral density in the lumbar spine since the prior examination of 09/01/2015. ??There has been a decrease of 11.9% in bone mineral density in the right femur and a decrease of 8.1% in bone mineral density in the left femur. 2. FRAX analysis yields a 10-year probability of major osteoporotic fracture of 11.3% and a 10-year probability of hip fracture of 2.3%. Code 03962 Dictating Physician: ??NENA CHRISTOPHER MD Electronically Signed by: ??NENA CHRISTOPHER MD Dic Date/Time: ??12/25/17 1036 Sign date/Time: ??12/25/17 1037 Procedure Note Nena Christopher MD - 06/05/2022 [facility] Diagnostic Imaging Department [address] [place] [address] Patient: JSZOE D.O.B./Age/Sex: 1955 - 62 - F Unit#: [id number] Location/Status: SPDIMAM/REG CLI [facility] Ordering Physician: GRAYSON NAPIER MD Addi Dexa Axial Skeleton - 12/25/17 - 1014 HISTORY: The patient is a 62-year-old postmenopausal female withclinical concern for metabolic bone disease. FINDINGS: Dual energy x-ray absorptiometry of the lumbar spine and femursis performed. The mean bone mineral density at L1-2 is 0.956 gm/cm2 which is82% of that of young normals and 102% of that of age matched controls. Thisyields a T- score of -1.7 and a Z-score of 0.2 which is diagnostic of osteopenia. The mean bone mineral density of the femurs bilaterally is 0.659 gm/yo8drkie is 65% of that of young normals and 80% of that of age matched controls.This yields a T-score of -2.8 and a Z-score of -1.3 which is diagnostic of osteoporosis. IMPRESSION: 1. Osteoporosis. There has been a decrease of 4.5% in bone mineraldensity in the lumbar spine since the prior examination of 09/01/2015. There has daryn decrease of 11.9% in bone mineral density in the right femur and adecrease of 8.1% in bone mineral density in the left femur. 2. FRAX analysis yields a 10-year probability of major osteoporoticfracture of 11.3% and a 10-year probability of hip fracture of 2.3%. Code 01059 Dictating Physician: NENA CHRISTOPHER MD Electronically Signed by: NENA CHRISTOPHER MD Dic Date/Time: 12/25/17 1036 Sign date/Time: 12/25/17 1037 us Grayson Napier MD IM BI PROCEDURES Final Resu lt from Last 3 Months or Most Recently Relevant to Health Maintenance Insurance MEDICARE MEDICAID - [place] Care Teams Cooker Operator Relationship Specialty Start Date End Date Sylvia Holt PA [address] [place] [phone] PCP - General 09/09/24
== END 2024-10-19 11:31 | disposition home or self-care (01) ==
LOC: HO.HOP 11:04
PROVIDERS: PCP Nurse Practitioner Family; Visit Provider Clinical Nurse Specialist Psychiatric/Mental Health
DX: F43.12 Post-traumatic stress disorder, chronic (principal); F33.1 Major depressive disorder, recurrent, moderate
CPT/HCPCS: 99214

== ENCOUNTER → 2024-10-19 11:04 | Outpatient (BNVA) | payer MEDICARE, MEDICAID, SELFPAY | PROVIDERS: PCP Nurse Practitioner Family; Visit Provider Clinical Nurse Specialist Psychiatric/Mental Health | DX: F33.1 Major depressive disorder, recurrent, moderate (principal); F43.12 Post-traumatic stress disorder, chronic; Z71.89 Other specified counseling | CPT/HCPCS: 99212 ==

== ENCOUNTER 2025-04-26 12:54 | Outpatient (AMB) | payer MEDICARE, MEDICAID, SELFPAY ==
--- NOTE | 2025-04-26 13:28 | MHC.OFFVISPS ---
Intake Intake Visit Reasons: depression Powder Cutting Operator Required: No Allergies No Known Allergies Allergy (Verified 10/08/23 15:47) Medication List - Last Reconciled 04/26/25 by Jenni Carey APRN albuterol sulfate 90 mcg/actuation (Ventolin HFA) inhalation atorvastatin 20 mg PO DAILY bupropion HCl XL 300 mg PO QAM carbidopa-levodopa 25-100 mg tabs PO cetirizine 10 mg PO DAILY cevimeline 2 caps PO BID chlorthalidone 25 mg PO DAILY cyclobenzaprine 10 mg PO TID diazepam 5 mg PO DAILY PRN dicyclomine 20 mg PO QID escitalopram oxalate 5 mg PO DAILY dxbfndqvdae-aqoibbkwq-elwsypvo 200-62.5-25 mcg (Trelegy Ellipta) 1 ea inhalation DAILY isosorbide mononitrate ER 30 mg PO DAILY linaclotide (Linzess) 72 mcg PO QAM lisinopril 10 mg PO DAILY meloxicam 15 mg PO DAILY metoprolol succinate ER 50 mg PO DAILY montelukast 10 mg PO DAILY ondansetron HCl 4 mg PO Q8H PRN pregabalin 150 mg PO TID zolpidem 5 mg PO BEDTIME PRN HPI- Psychiatric Chief Complaint: depression HPI Narrative: pt here for follow up re: depression, anxiety, and insomnia. Pt struggling with chronic pain- working with ortho and getting cortisone shots she has a new pcp with whom she is establishing care she reports her mood and anxiety effected by pain and sleep She is sleeping better with zolpidem. denies side effects including dizziness, falls, sleepwalking-with medication she can get 6-7 hours of sleep PHQ9= 15 and GAD7= 12 Pt reports passive SI but no plan and no intent; she is future oriented and says she has good support at home Her relationship is going better; heis in therapy and they have learned he has dx autism pt reports pain is driving force of mood symptoms and she will continue to work with PCP and orthopedics to remedy she enjoys gardening and her partner's company. Past Psychiatric History: long history of mood disorder since early . Has struggled with anxiety and depression for most of her adult life; Has been in treatment for years most recently at [facility] PHP none Mental Status Exam Mental Status Exam Patient Appearance: Well Grooomed and Appropriate Patient Orientation: Person, Place, Time and Situation Level of Consciousness: Awake and Appropriate Patient Behavior: Appropriate, Cooperative and Good Eye Contact Mood Description: Cheerful and Anxious Affect Description: Cheerful and Anxious Patient Cognition Impaired: No Ability to Follow Directions: Good Speech Pattern: Clear, Appropriate and Coherent Memory Description: Intact Hallucinations: None Delusions: Not Present Thought Process: Intact and Goal Oriented Thought Content: positive for Intact and positive for Goal Oriented Judgement: Good Assessment and Plan Assessment & Plan (1) Chronic post-traumatic stress disorder (PTSD): Status: Acute Code(s): F43.12 - Post-traumatic stress disorder, chronic (2) Major depressive disorder, recurrent, moderate: Status: Acute Code(s): F33.1 - Major depressive disorder, recurrent, moderate Plan continue meds per below Return in 6 months Medications: Refilled bupropion HCl XL 300 mg PO QAM 90 tabs 1RF diazepam 5 mg PO DAILY PRN 30 tabs 4RF anxiety escitalopram oxalate 5 mg PO DAILY 90 tabs 1RF zolpidem 5 mg PO BEDTIME PRN 30 tabs 4RF sleep Counseling and coordination of Care Pt. Self Management counseling: Maintenance-social rhythm, Mod caffeine/ETOH intake, Nutrition education and improvement, General coping skills and Problem solving Medication management counseling: Effectiveness, Side effects, Dosing range, Duration, Drug interaction and Adherence Diagnosis and Prognosis Counseling: Accuracy of diagnosis, Prognosis over time, Impact of diagnosis on life functions, Impact of family relationship, Problematic behaviors secondary to diagnosis and Adequacy of current interventions Details: I spent 35 minutes reviewing the record, seeing the patient and documenting in the medical record. Counseling provided to the patient/caregiver as outlined below. Addressed patient/caregiver concerns regarding current medication regime including effective adherence. Addressed patient/caregiver concerns regarding diagnosis and prognosis including accuracy of diagnosis, prognosis over time, impact of diagnosis. Addressed patient/caregiver concerns regarding impact of recent stressors. [facility] Medical History (Updated 10/08/23 @ 16:08 by Jenni Carey APRN) Fibromyalgia CAD (coronary artery disease) Sjogren's disease Chronic GERD High cholesterol Angina at rest C. difficile diarrhea Kidney stones Surgical History (Updated 10/08/23 @ 15:22 by Jenni Carey APRN) Hx of cholecystectomy Social History: pt lives with . she had 2 children; one daughter; lost one son when he was 32 yo from MVA. has a granddaughter age 6 Substance History: none Trauma History: lost son from MVA- he was age 32 - she needed to make life support decision Coding Level of Care Code Est Pt Level 4 (99158) Diagnoses Chronic post-traumatic stress disorder (PTSD) F43.12 Major depressive disorder, recurrent, moderate F33.1
--- OUTSIDE RECORDS SUMMARY | 2025-04-26 14:58 | XMS_ITS | Encounter Summary ---
Author Organization [facility] Address [address] [place] [phone] Phone Care Team Providers Care Cloth Baler Name Role Phone Karla Kelley MD Primary Care Provide r Kapil Nesbitt MD Primary Care Provider [phone] Mel Joseph CNP Primary Care Provider + Pcp, Unknown Primary Care Provider Unavailabl e Encounter Details Date Type Department Care Team (Late st Contact Info) Description 11/04/2019 Procedure Pass [facility], [address] [address] Social History Tobacco Use Types Packs/Day Years Used Date Smoking Tobacco: Former Smokeless Tobacco: Never Comments Unknown Sex and Gender Information Value Date Recorded Sex Assigned at Not on file Legal Sex Female 8:33 PM EDT Gender Identity Not on file Sexual Orientation Not on file documented as of this encounter Plan of Treatment Upcoming Encounters Date Type Department Care Team (Late st Contact Info) Description 09/14/2025 3:45 PM EDT Appointment [facility], [address] [address] Radha Griffith MD [address] [facility], [address] [place] [address] 10/01/2025 10:00 AM EDT Office Visit [facility] Rheumatology [address] [place] [address] Radha Griffith MD [address] [facility], [address] [place] [address] documented as of this encounter Visit Diagnoses Not on filedocumented in this encounter Care Teams Cloth Baler Relationship Specialty Start Date End Date Kalra Kelley MD [address] [place] [address] PCP - General Geriatric Psychiatry 12/03/17 12/11/19 Kapil Nesbitt MD [address] [place] [address] [address] [place] [address] PCP - General Internal Medicine 12/12/19 11/19/23 Mel Joseph CNP [address] [place] [address] [address] [place] [address] PCP - General Nurse Practitioner 01/31/24 10/22/24 Pcp, Unknown PCP - General 03/23/25 documented as of this encounter Additional Source Comments The information contained in this document represents components of the legal health record. It is not the complete legal health record.[facility]
--- OUTSIDE RECORDS SUMMARY | 2025-04-26 14:58 | XMS_ITS | Clinical Summary ---
Author Organization [facility] Address [address] [place], [place] [id number] Phone Care Team Providers Care Network Security Engineer Name Role Phone Pcp, Unknown Primary Care Provider Unavailabl e Allergies Active Allergy Reactions Criticality Noted Date Comments Ciprofloxacin 12/26/2022 Codeine Shortness Of Breath High 07/19/2008 Cyclobenzaprine 07/07/2018 Bouncing of the wall feeling, can take when spaced out several hours Metoclopramide Other (See Comments) 07/19/2008 Metoclopramide Hcl Lock jaw Risperidone 09/02/2017 Limps jerking, unable to walk Sulfa (Sulfonamide Antibiotics) Medications lysine 500 mg Tab 500 mg 3 (three) times a day. as directed Orally Active b complex vitamins tablet as directed Orally Active buPROPion (WELLBUTRIN XL) 300 MG ER 24 hr tablet Take 300 mg by mouth every morning. 1 cap(s) p.o. Once daily Active metoprolol succinate (TOPROL-XL) 50 MG 24 hr tablet Take 50 mg by mouth daily. Active aspirin 81 mg chewable tablet Take 1 tablet by mouth daily. Active atorvastatin (LIPITOR) 40 MG tablet Take 20 mg by mouth daily. Active carbidopa-levod opa (SINEMET CR) 25-100 mg per CR tablet Take by mouth as directed. 2 tab in am, 2 tab in afternoon and 3 tabs at hs Active cholecalciferol (VITAMIN D3) 1,000 unit tablet Take 1,000 Units by mouth 2 (two) times a day. Active multivit with minerals/lutein (MULTIVITAMIN 50 PLUS ORAL) Take 1 tablet by mouth daily. Active melatonin 3 mg Tab Take 3 mg by mouth nightly at bedtime as needed. 05/01/20 22 Active nitroglycerin (NITROSTAT) 0.4 MG SL tablet DISSOLVE 1 TABLET SUBLINGUALLY EVERY 5 MINUTES NEEDED FOR CHEST PAIN 05/02/20 Active albuterol 90 mcg/actuation inhaler Inhale 2 puffs into the lungs every 6 (six) hours as needed for wheezing. Active isosorbide mononitrate (IMDUR) 30 MG 24 hr tablet Take 1 tablet by mouth every morning. 10/24/19 23 Active montelukast (SINGULAIR) 10 mg tablet Take 10 mg by mouth daily. Active diazePAM (VALIUM) 5 MG tablet Take 0.5 tablets by mouth 3 (three) times a day. Active TRELEGY ELLIPTA 200-62.5-25 mcg inhaler 1 puff daily. 03/25/20 23 Active cyclobenzaprine (FLEXERIL) 10 MG tabletIndicatio ns:Fibromyalgia TAKE 1 TABLET BY MOUTH THREE TIMES A DAY NEEDED 90 tablet 2 12/11/19 25 Active zolpidem (AMBIEN) 5 MG tablet Take 5 mg by mouth nightly at bedtime as needed. 03/26/20 25 Active fluticasone propionate (FLONASE) 50 mcg/actuation nasal spray 2 sprays by Nasal route daily. Active lisinopril (PRINIVIL,ZESTR IL) 10 MG tablet Take 10 mg by mouth daily. 08/22/19 25 Active escitalopram oxalate (LEXAPRO) 5 MG tablet Take 1 tablet by mouth every morning. 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 360 capsule 1 04/01/20 25 Active meloxicam (MOBIC) 15 MG tabletIndicatio ns:Spinal stenosis of lumbosacral region TAKE 1 TAB ONCE DAILY WITH FOOD 90 tablet 04/01/20 25 Active pregabalin (LYRICA) 150 MG capsuleIndicati ons:Fibromyalgi a Take 1 capsule (150 mg total) by mouth 3 (three) times a day. 90 capsule 5 04/01/20 25 Active omeprazole (PRILOSEC) 20 MG capsule Take 40 mg by mouth daily. 025 Discontin ued(No longer taking) linaCLOtide (LINZESS) 72 mcg capsule Take 72 mcg by mouth daily. 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 360 capsule 1 08/06/19 25 025 Discontin ued(Reord er) meloxicam (MOBIC) 15 MG tabletIndicatio ns:Spinal stenosis of lumbosacral region TAKE 1 TABLET BY MOUTH ONCE DAILY (WITH FOOD) 90 tablet 01/14/20 025 Discontin ued(Reord er) pregabalin (LYRICA) 150 MG capsuleIndicati ons:Fibromyalgi a TAKE 1 CAPSULE BY MOUTH THREE TIMES A DAY 90 capsule 03/19/20 025 Discontin ued(Reord er) Hospital, Clinic, or Other Facility Administered Medication Ordered Dose Route Frequency Start Date End Date Status denosumab (PROLIA) subcutaneous syringe 60 mgIndications:Age-related osteoporosis without current pathological fracture 60 mg SubQ Once 04/01/2025 04/01/2025 Ended Active Problems Problem Noted Date Diagnosed Date Raynaud's phenomenon without gangrene 08/06/2024 Assessment & Plan (04/01/2025 2:54 PM EDT): Keep warm, dress in layers. Optimize stress management strategies. Avoid vasoconstrictors in OTC products for cold/flu and sinus. Assessment & Plan (08/06/2024 4:48 PM EST): Keep warm, dress in layers. Optimize stress management strategies. Avoid vasoconstrictors in OTC products for cold/flu and sinus. Class 1 obesity with serious comorbidity and body mass index (BMI) of 30.0 to 30.9 in adult 08/06/2024 Assessment & Plan (04/01/2025 10:22 PM EDT): Continue diligent portion control particularly in view of gaining 4 pounds from 159 on 08/06/2024 up to 163 today. Limit concentrated sugars, saturated fats and calories in the diet. Keep well-hydrated. If unable to achieve expected goal consider formal dietary/nutritional support. Assessment & Plan (08/06/2024 4:48 PM EST): Continue diligent portion control particularly in view of gaining 8 pounds from 151 on 01/30/2025 up to 159 today. Limit concentrated sugars, saturated fats and calories in the diet. Keep well-hydrated. If unable to achieve expected goal consider formal dietary/nutritional support. Encounter for monitoring denosumab therapy 12/26 Assessment & Plan (04/01/2025 3:22 PM EDT): Reminded to get chemistry profile within 30 days of planned every 6 months subcutaneous Prolia injections-standing orders in [facility]. Assessment & Plan (08/06/2024 4:36 PM EST): Reminded to get chemistry profile within 30 days of planned every 6 months subcutaneous Prolia injections-standing orders in [facility]. Assessment & Plan (01/31/2024 3:27 PM EDT): Reminded to get chemistry profile within 30 days of planned every 6 months subcutaneous Prolia injections-standing orders in [facility]. Assessment & Plan (11/20/2023 12:47 PM EDT): Reminded to get chemistry profile within 30 days of planned every 6 months subcutaneous Prolia injections-standing orders in [facility]. Assessment & Plan (07/18/2023 2:51 PM EST): Reminded to get chemistry profile within 30 days of planned every 6 months subcutaneous Prolia injections-standing orders in [facility]. Assessment & Plan (12/26/2022 10:07 PM EDT): Reminded to get chemistry profile within 30 days of planned every 6 months subcutaneous Prolia injections-standing orders in [facility]. Trochanteric bursitis of right hip 12/26/2022 Assessment & Plan (12/26/2022 4:41 PM EDT): Procedure: After an informed oral consent, under sterile conditions using Ethyl chloride spray for local anesthesia I have injected 40 mg Kenalog and 2cc 1% Lidocaine into Right trochanteric bursa uneventfully. Details of post-procedure care were explained to the patient in the office and given in writing. Provider: Radha Griffith MD Patient: Zoe Weinstein : 1955 Date: 12/26/2022 Aspirin long-term use 06/12/2022 Assessment & Plan (04/01/2025 2:54 PM EDT): Extra caution entertained to secure the clot after each procedure today as above. Avoid falls, injuries and cuts. Monitor for excessive bruising and bleeding. Assessment & Plan (08/06/2024 4:36 PM EST): Extra caution entertained to secure the clot after each procedure today as above. Avoid falls, injuries and cuts. Monitor for excessive bruising and bleeding. Assessment & Plan (01/31/2024 3:46 PM EDT): Extra caution entertained to secure the clot after each procedure today as above. Avoid falls, injuries and cuts. Monitor for excessive bruising and bleeding. Assessment & Plan (11/20/2023 12:47 PM EDT): Avoid falls, injuries and cuts. Monitor for excessive bruising and bleeding. Assessment & Plan (07/20/2023 8:33 PM EST): Avoid falls, injuries and cuts. Monitor for excessive bruising and bleeding. Assessment & Plan (12/26/2022 10:04 PM EDT): Avoid falls, injuries and cuts. Monitor for excessive bruising and bleeding. Assessment & Plan (06/12/2022 10:30 PM EST): Extra pressure applied to secure the clot after right knee injection procedure. Avoid falls, injuries and cuts. Monitor for excessive bruising and bleeding. NSAID long-term use 05/16/2022 Assessment & Plan (08/06/2024 4:35 PM EST): Take the lowest dose, with least frequency, for shortest time. Remember to take it always with food. Favor topical over oral preparations. She understands that it is unsafe to continue taking 2 different nonsteroidal anti-inflammatory such as Celebrex and meloxicam therefore she decided to continue meloxicam as the Celebrex did not help her as much. Assessment & Plan (01/31/2024 3:45 PM EDT): Take the lowest dose, with least frequency, for shortest time. Remember to take it always with food. Favor topical over oral preparations. She understands that it is unsafe to continue taking 2 different nonsteroidal anti-inflammatory such as Celebrex and meloxicam therefore she decided to continue meloxicam as the Celebrex did not help her as much. Assessment & Plan (11/20/2023 12:47 PM EDT): Take the lowest dose, with least frequency, for shortest time. Remember to take it always with food. Favor topical over oral preparations. Assessment & Plan (07/18/2023 2:51 PM EST): Take the lowest dose, with least frequency, for shortest time. Remember to take it always with food. Favor topical over oral preparations. Assessment & Plan (12/26/2022 4:47 PM EDT): Take the lowest dose, with least frequency, for shortest time. Remember to take it always with food. Favor topical over oral preparations. Assessment & Plan (05/16/2022 2:06 PM EST): Take the lowest dose, with least frequency, for shortest time. Remember to take it always with food. Favor topical over oral preparations. Achilles tendinitis of right lower extremity 06/2020 Assessment & Plan (01/16/2021 8:46 AM EDT): Continue stretches, warmth, diclofenac gel as needed. Spinal enthesopathy of lumbar region 10/04/2020 Assessment & Plan (04/01/2025 2:54 PM EDT): Use warm pack alternating with cold packs and topical Arnica, Biofreeze or Voltaren versus medicated patches such as Salonpas or IcyHot patch. Avoid falls and injuries, no heavy lifting and no sudden turns. Assessment & Plan (09/03/2024 10:38 PM EDT): Use warm pack alternating with cold packs and topical Arnica, Biofreeze or Voltaren versus medicated patches such as Salonpas or IcyHot patch. Avoid falls and injuries, no heavy lifting and no sudden turns. Assessment & Plan (05/02/2023 12:45 PM EST): Findings spinal stenosis, ongoing pain. Post surgeries. I do not have much to offer here. Uses walker for ambulation on occasion. Assessment & Plan (10/04/2020 3:34 PM EDT): Injection therapy today, Stan Sagastume, relative rest, reviewed MRI. Follow- up phone call 4 days. Spinal stenosis of lumbosacral region 11/04/2019 Assessment & Plan (04/01/2025 10:20 PM EDT): Avoid bending, stooping, heavy lifting, sudden turns. Proper posture and sure to keep most favorable alignment to reduce the pain. Use warm pack versus warm shower prior to each regular session of exercises to improve core muscle strength. Work on reducing body weight as close as possible to ideal range for her height. She may benefit from topical cream such as Arnica, Biofreeze, Aspercreme, blue emu versus medicated patches such as Salonpas or IcyHot patch. Assessment & Plan (01/31/2024 3:26 PM EDT): Avoid bending, stooping, heavy lifting, sudden turns. Proper posture and sure to keep most favorable alignment to reduce the pain. Use warm pack versus warm shower prior to each regular session of exercises to improve core muscle strength. Work on reducing body weight as close as possible to ideal range for her height. She may benefit from topical cream such as Arnica, Biofreeze, Aspercreme, blue emu versus medicated patches such as Salonpas or IcyHot patch. Assessment & Plan (07/18/2023 2:50 PM EST): Avoid bending, stooping, heavy lifting, sudden turns. Proper posture and sure to keep most favorable alignment to reduce the pain. Use warm pack versus warm shower prior to each regular session of exercises to improve core muscle strength. Work on reducing body weight as close as possible to ideal range for her height. She may benefit from topical cream such as Arnica, Biofreeze, Aspercreme, blue emu versus medicated patches such as Salonpas or IcyHot patch. Assessment & Plan (12/26/2022 10:10 PM EDT): Avoid bending, stooping, heavy lifting, sudden turns. Proper posture and sure to keep most favorable alignment to reduce the pain. Use warm pack versus warm shower prior to each regular session of exercises to improve core muscle strength. Work on reducing body weight as close as possible to ideal range for her height. She may benefit from topical cream such as Arnica, Biofreeze, Aspercreme, blue emu versus medicated patches such as Salonpas or IcyHot patch. Assessment & Plan (02/09/2021 8:50 AM EDT): Reviewed new MRI showing stable though severe central canal stenosis at L3-4 and L4-5 as well as lateral recess stenosis at L2-L4. Because of her nocturnal paresthesias and lower extremity weakness as well as severe back pain she is being referred to [facility] for consideration of a fluoroscopically guided epidural corticosteroid injection. Assessment & Plan (01/16/2021 8:47 AM EDT): Reviewed Nov 2019 MRI indicating worsening central canal stenosis despite surgery. Also spondylolisthesis at 2 levels. Plan the following: Repeat MRI, consider referral back to neurosurgery for either an implanted spinal cord stimulator, injection therapy or consider more surgery. Patient's neurologic symptoms have progressed. Stop etodolac and start a 5-day course of dexamethasone at 4 mg twice daily with a reduction of 2 mg each day till off. Thereafter she may resume NSAID in the form of meloxicam at 15 mg daily. Lab work reviewed. No visits with results within 3 Month(s) from this visit. Latest known visit with results is: Hospital Outpatient Visit on 11/04/2019 Component Date Value Ref Range Status URIC ACID 11/04/2019 4.6 2.4 - 7.0 mg/dL Final FOLIC ACID 11/04/2019 >20.0* 4.2 - 19.9 ng/mL Final VITAMIN B12 11/04/2019 684 232 - 1,245 pg/mL Final WBC 11/04/2019 7.82 4.00 - 11.00 K/uL Final Note Reference Range updates to all CBC and Differential results. RBC 11/04/2019 3.77 3.72 - 5.30 M/uL Final HGB 11/04/2019 11.8 11.4 - 15.9 g/dL Final Note updated Reference Ranges for all CBC and Differential results. HCT 11/04/2019 36.0 34.2 - 46.8 % Final PLT 11/04/2019 235 140 - 430 K/uL Final MCV 11/04/2019 95.5 78.0 - 97.0 fL Final MCH 11/04/2019 31.3 25.0 - 33.0 pg Final MCHC 11/04/2019 32.8 32.0 - 36.0 g/dL Final RDW 11/04/2019 14.6 11.0 - 16.0 % Final MPV 11/04/2019 11.9 8.4 - 12.8 fl Final NRBC 11/04/2019 0.00 0 /100 WBCs Final ABSOLUTE NRBC 11/04/2019 0.00 0 K/uL Final DIFF METHOD 11/04/2019 Auto Final NEUTS 11/04/2019 45.7 43.0 - 75.0 % Final LYMPHS 11/04/2019 39.9 18.2 - 47.4 % Final MONOS 11/04/2019 7.4 4.00 - 11.00 % Final EOS 11/04/2019 6.1 0.0 - 8.0 % Final BASOS 11/04/2019 0.6 0.0 - 2.0 % Final Granulocytes, immature (%) 11/04/2019 0.3 0.0 - 0.9 % Final ABSOLUTE NEUTS 11/04/2019 3.57 1.80 - 7.70 K/uL Final ABSOLUTE LYMPHS 11/04/2019 3.12* 1.00 - 3.10 K/uL Final ABSOLUTE MONOS 11/04/2019 0.58 0.20 - 0.80 K/uL Final ABSOLUTE EOS 11/04/2019 0.48 0.00 - 0.80 K/uL Final ABSOLUTE BASOS 11/04/2019 0.05 0.00 - 0.09 K/uL Final Granulocytes, immature 11/04/2019 0.02 0.00 - 0.05 K/uL Final SODIUM 11/04/2019 145 133 - 146 mmol/L Final POTASSIUM 11/04/2019 4.2 3.3 - 5.1 mmol/L Final CHLORIDE 11/04/2019 109* 96 - 108 mmol/L Final CO2 11/04/2019 24 21 - 35 mmol/L Final BUN 11/04/2019 21* 6 - 19 mg/dL Final CREATININE 11/04/2019 0.70 0.5 - 1.5 mg/dL Final GLUCOSE 11/04/2019 96 70 - 99 mg/dL Final ALBUMIN 11/04/2019 4.3 3.9 - 4.8 g/dL Final TOTAL PROTEIN 11/04/2019 7.0 6.5 - 8.0 g/dL Final CALCIUM 11/04/2019 9.2 8.4 - 10.3 mg/dL Final ALKALINE PHOSPHATASE 11/04/2019 76 39 - 117 U/L Final TOTAL BILIRUBIN 11/04/2019 0.3 0.0 - 1.2 mg/dL Final AST 11/04/2019 30 0 - 37 U/L Final ALT 11/04/2019 16 0 - 40 U/L Final GLOBULIN 11/04/2019 2.7 1 - 4.8 g/dL Final EGFR 11/04/2019 90 >59 mL/min/1.73m2 Final If patient is black, multiply result by 1.159. Estimated glomerular filtration rate calculated using the CKD-EPI equation. ANION GAP 11/04/2019 16 10 - 20 mmol/L Final 25 OH VIT D (TOTAL) 11/04/2019 39 30 - 60 ng/mL Final C REACTIVE PROTEIN 11/04/2019 1.2 0.0 - 4.0 mg/L Final TSH 11/04/2019 1.58 0.27 - 4.20 uIU/mL Final Assessment & Plan (10/04/2020 3:33 PM EDT): Neurogenic claudication and lumbar radiculopathy has worsened. She was unable to get the spinal cord stimulator. I will refill her pregabalin, stop the meloxicam and start Daypro 1200 mg daily and Flexeril 10 mg at bedtime and administer injection therapy into the painful areas today. Follow-up phone call in 4 days. Assessment & Plan (05/02/2020 12:33 PM EST): Continues with right lower extremity radiculopathy but awaiting placement of spinal cord stimulator which should be very helpful here. Assessment & Plan (03/30/2020 11:47 AM EDT): Painful lumbar radiculopathy. Agree with plans for implantable stimulator. We will review neurosurgery consult when it comes in. Assessment & Plan (11/04/2019 8:19 AM EDT): Patient's current chief complaint appears to be secondary to chronic radiculopathy and neurogenic claudication. Review of previous MRI from 18 shows significant and moderate canal stenosis at L4-5 and L4-5 and L5-S1 lateral recess stenosis. She does have a foot drop on the right side and chronic radiculitis on the left side. 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 Rotator cuff impingement syndrome of right shoul sirisha 11/03/2018 Fibromyalgia 11/03/2018 Assessment & Plan (04/01/2025 2:54 PM EDT): Carefully continue Lyrica 150 mg 3 times daily instead of 300 mg twice daily that did not help her during the day. Focus more on nonpharmacologic measures such as mindfulness as described in the book written by Dr Arsi Bhatt Full catastrophe living or Managing pain before it manages you by Dr. Мария Pimentel She may benefit from regular warm pool exercises such as at local [facility] or [facility] in [place], [place]. Assessment & Plan (08/06/2024 4:35 PM EST): Carefully continue Lyrica 150 mg 3 times daily instead of 300 mg twice daily that did not help her during the day. Focus more on nonpharmacologic measures such as mindfulness as described in the book written by Dr Aris Bhatt [facility] catastrophe living or Managing pain before it manages you by Dr. Мария Pimentel She may benefit from regular warm pool exercises such as at [facility] or [place], [place]. Assessment & Plan (01/31/2024 3:26 PM EDT): Carefully continue Lyrica 150 mg 3 times daily instead of 300 mg twice daily that did not help her during the day. Focus more on nonpharmacologic measures such as mindfulness as described in the book written by Dr Aris Bhatt [facility] catastrophe living or Managing pain before it manages you by Dr. Мария Pimentel She may benefit from regular warm pool exercises such as at [place], [place]. Assessment & Plan (11/24/2023 11:47 AM EDT): Carefully continue Lyrica 150 mg 3 times daily instead of 300 mg twice daily that did not help her during the day. Focus more on nonpharmacologic measures such as mindfulness as described in the book written by Dr Aris Bhatt [facility] catastrophe living or Managing pain before it manages you by Dr. Мария Pimentel She may benefit from regular warm pool exercises such as at [facility] or [place], [place]. Assessment & Plan (07/20/2023 8:33 PM EST): Carefully return to Lyrica 150 mg 3 times daily instead of 300 mg twice daily that did not help her during the day. Focus more on nonpharmacologic measures such as mindfulness as described in the book written by Dr Aris Bhatt [facility] catastrophe living or Managing pain before it manages you by Dr. Мария Pimentel She may benefit from regular warm pool exercises such as at [facility] or [place], [place]. Assessment & Plan (05/02/2023 12:47 PM EST): Long hx fibromyalgia. Polypharmacy. Could try increasing dose pregabalin to 300 bid. Also try tizanidine instead of cyclobenzaprine. The cyclob makes her hyper . Assessment & Plan (12/26/2022 10:03 PM EDT): Carefully continue Lyrica 150 mg 3 times daily and focus more on nonpharmacologic measures such as mindfulness as described in the book written by Dr Aris Bhatt [facility] catastrophe living She may benefit from regular warm pool exercises such as at local [facility] or [facility] in [place], [place]. Assessment & Plan (01/16/2021 8:48 AM EDT): Multiple tender points, fatigue, and generalized aching color her severe neurogenic claudication from lumbar spinal stenosis. She will continue on Lyrica, vitamin D, good sleep hygiene and is much regular weightbearing exercise as possible. Assessment & Plan (11/15/2020 11:18 AM EDT): Active, stable, painful fibromyalgia doing well on Daypro at 600 to 1200 mg daily and Lyrica at 150 mg at nighttime. Discussed risks and benefits of current medication. Discussed good sleep hygiene, regular exercise, well fitting supportive shoes and vitamin D supplementation. No visits with results within 3 Month(s) from this visit. Latest known visit with results is: Hospital Outpatient Visit on 11/04/2019 Component Date Value Ref Range Status URIC ACID 11/04/2019 4.6 2.4 - 7.0 mg/dL Final FOLIC ACID 11/04/2019 >20.0* 4.2 - 19.9 ng/mL Final VITAMIN B12 11/04/2019 684 232 - 1,245 pg/mL Final WBC 11/04/2019 7.82 4.00 - 11.00 K/uL Final Note Reference Range updates to all CBC and Differential results. RBC 11/04/2019 3.77 3.72 - 5.30 M/uL Final HGB 11/04/2019 11.8 11.4 - 15.9 g/dL Final Note updated Reference Ranges for all CBC and Differential results. HCT 11/04/2019 36.0 34.2 - 46.8 % Final PLT 11/04/2019 235 140 - 430 K/uL Final MCV 11/04/2019 95.5 78.0 - 97.0 fL Final MCH 11/04/2019 31.3 25.0 - 33.0 pg Final MCHC 11/04/2019 32.8 32.0 - 36.0 g/dL Final RDW 11/04/2019 14.6 11.0 - 16.0 % Final MPV 11/04/2019 11.9 8.4 - 12.8 fl Final NRBC 11/04/2019 0.00 0 /100 WBCs Final ABSOLUTE NRBC 11/04/2019 0.00 0 K/uL Final DIFF METHOD 11/04/2019 Auto Final NEUTS 11/04/2019 45.7 43.0 - 75.0 % Final LYMPHS 11/04/2019 39.9 18.2 - 47.4 % Final MONOS 11/04/2019 7.4 4.00 - 11.00 % Final EOS 11/04/2019 6.1 0.0 - 8.0 % Final BASOS 11/04/2019 0.6 0.0 - 2.0 % Final Granulocytes, immature (%) 11/04/2019 0.3 0.0 - 0.9 % Final ABSOLUTE NEUTS 11/04/2019 3.57 1.80 - 7.70 K/uL Final ABSOLUTE LYMPHS 11/04/2019 3.12* 1.00 - 3.10 K/uL Final ABSOLUTE MONOS 11/04/2019 0.58 0.20 - 0.80 K/uL Final ABSOLUTE EOS 11/04/2019 0.48 0.00 - 0.80 K/uL Final ABSOLUTE BASOS 11/04/2019 0.05 0.00 - 0.09 K/uL Final Granulocytes, immature 11/04/2019 0.02 0.00 - 0.05 K/uL Final SODIUM 11/04/2019 145 133 - 146 mmol/L Final POTASSIUM 11/04/2019 4.2 3.3 - 5.1 mmol/L Final CHLORIDE 11/04/2019 109* 96 - 108 mmol/L Final CO2 11/04/2019 24 21 - 35 mmol/L Final BUN 11/04/2019 21* 6 - 19 mg/dL Final CREATININE 11/04/2019 0.70 0.5 - 1.5 mg/dL Final GLUCOSE 11/04/2019 96 70 - 99 mg/dL Final ALBUMIN 11/04/2019 4.3 3.9 - 4.8 g/dL Final TOTAL PROTEIN 11/04/2019 7.0 6.5 - 8.0 g/dL Final CALCIUM 11/04/2019 9.2 8.4 - 10.3 mg/dL Final ALKALINE PHOSPHATASE 11/04/2019 76 39 - 117 U/L Final TOTAL BILIRUBIN 11/04/2019 0.3 0.0 - 1.2 mg/dL Final AST 11/04/2019 30 0 - 37 U/L Final ALT 11/04/2019 16 0 - 40 U/L Final GLOBULIN 11/04/2019 2.7 1 - 4.8 g/dL Final EGFR 11/04/2019 90 >59 mL/min/1.73m2 Final If patient is black, multiply result by 1.159. Estimated glomerular filtration rate calculated using the CKD-EPI equation. ANION GAP 11/04/2019 16 10 - 20 mmol/L Final 25 OH VIT D (TOTAL) 11/04/2019 39 30 - 60 ng/mL Final C REACTIVE PROTEIN 11/04/2019 1.2 0.0 - 4.0 mg/L Final TSH 11/04/2019 1.58 0.27 - 4.20 uIU/mL Final Assessment & Plan (05/02/2020 12:33 PM EST): Doing reasonably well on a combination of meloxicam and Lyrica which will continue unchanged. Assessment & Plan (11/04/2019 8:18 AM EDT): Active stable fibromyalgia. Low inflammatory Mediterranean style diet, regular walking program starting at 20 minutes 5 to 6 days a week and well fitting supportive shoes. Continue Lyrica. Give meloxicam a drug holiday for 5 days to see if there is any effect on her bowel issues and if not she may restart. Understands the need for lab work to monitor medications and these were set up today to be done later this month. Previous lab work was reviewed with her. No visits with results within 3 Month(s) from this visit. Latest known visit with results is: Hospital Outpatient Visit on 11/03/2018 Component Date Value Ref Range Status C REACTIVE PROTEIN 11/03/2018 0.7 0.0 - 4.0 mg/L Final Lyme AB IgG 11/03/2018 Negative Negative Final Lyme AB IgM 11/03/2018 Negative Negative Final Assessment & Plan (08/05/2019 9:28 AM EST): Active stable with multiple tender points, fatigue, and poor sleep but under good control. Continue Lyrica 150 mg 3 times daily, meloxicam 15 mg daily, vitamin D3 1000 units daily. Assessment & Plan (05/06/2019 10:27 AM EST): Active but stable fibromyalgia with poor sleep, morning stiffness multiple tender points and absence of inflammatory arthritis. She will continue on meloxicam and Lyrica. Laboratory work was reviewed with her. No visits with results within 3 Month(s) from this visit. Latest known visit with results is: Hospital Outpatient Visit on 11/03/2018 Component Date Value Ref Range Status C REACTIVE PROTEIN 11/03/2018 0.7 0.0 - 4.0 mg/L Final Lyme AB IgG 11/03/2018 Negative Negative Final Lyme AB IgM 11/03/2018 Negative Negative Final Assessment & Plan (11/03/2018 1:23 PM EDT): She will continue on Lyrica. She will continue on calcium and vitamin D. She will stay on 15 mg of meloxicam daily. We talked about maintaining a low inflammatory Mediterranean style diet, managing stress, and beginning a regular walking program for 45 minutes 5 days a week. GERD (gastroesophageal reflux disease) 9 Assessment & Plan (04/01/2025 2:54 PM EDT): Avoid late, large, spicy meals. Keep headboard elevated at 45 angle for nighttime. Assessment & Plan (08/06/2024 4:35 PM EST): Avoid late, large, spicy meals. Keep headboard elevated at 45 angle for nighttime. Assessment & Plan (01/31/2024 3:26 PM EDT): Avoid late, large, spicy meals. Keep headboard elevated at 45 angle for nighttime. Assessment & Plan (12/26/2022 4:46 PM EDT): Avoid late, large, spicy meals. Keep headboard elevated at 45 angle for nighttime. Assessment & Plan (07/07/2018 12:14 PM EST): Continue PPI, elevating head of the bed and dietary discretion. Hypertension 12/03/2017 Assessment & Plan (11/03/2018 1:21 PM EDT): Good control on current medications which will remain unchanged. She was reminded to stay on a low-sodium diet. 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 Avoid spicy and acidic foods. Diligent mouth hygiene. Regular dental checkups. Continue Evoxac as prescribed. Assessment & Plan (08/06/2024 4:26 PM EST): Keep well-hydrated. Avoid spicy and acidic foods. Diligent mouth hygiene. Regular dental checkups. Continue Evoxac as prescribed. Assessment & Plan (06/12/2022 10:29 PM EST): Keep well-hydrated. Avoid spicy and acidic foods. Diligent mouth hygiene. Regular dental checkups. Continue Evoxac as prescribed. Assessment & Plan (06/11/2021 10:54 PM EST): Continue Evoxac which has been helpful Assessment & Plan (02/09/2021 8:49 AM EDT): Continue good oral hydration, Biotene mouthwash and toothpaste as needed, Evoxac 30 mg 3 times daily as needed and regular visits to the dentist. Assessment & Plan (11/15/2020 11:18 AM EDT): Stable without mucositis. Continue current medication as well as Biotene mouthwash and toothpaste as needed. Assessment & Plan (10/04/2020 3:33 PM EDT): The oropharynx is dry but clear without mucositis or thrush. She will use Biotene mouthwash and toothpaste. I have refilled her Evoxac at 30 mg 3 times daily. Assessment & Plan (05/02/2020 12:32 PM EST): Doing well with this. Encourage continued dental follow-up, good oral hydration and continued use of Evoxac 30 mg 3 times daily as needed. Assessment & Plan (03/30/2020 11:47 AM EDT): Stable. Continue Evoxac at 30 mg 3 times daily. Good oral hydration and regular visits to the dentist. Assessment & Plan (11/04/2019 8:19 AM EDT): Needs to reestablish visits to dentist when it is safe to be out and about. Continue Biotene mouthwash and toothpaste as needed. Continue Evoxac. Assessment & Plan (08/05/2019 9:28 AM EST): Continue Evoxac 30 mg 3 times daily as needed as well as good oral hydration and regular visits to the dentist. Assessment & Plan (05/06/2019 10:27 AM EST): Regular visits to the assistant boiler operator and continued use of eyedrops for lubrication. And Evoxac at 30 mg twice daily. Assessment & Plan (11/03/2018 1:21 PM EDT): Continue Evoxac 30 mg twice daily which is working quite well. She has no dysphagia odontophagia or mucositis. She understands the need for good oral hydration with at least three 8 ounce glasses of water daily as well as Biotene mouthwash and toothpaste. Assessment & Plan (07/07/2018 12:12 PM EST): Worsening xerostomia but no evidence of mucositis or dental caries. This is a combination of autoimmune xerostomia which is partially treated with Evoxac at 30 mg twice daily as well as medication side effects from Sinemet and Lyrica. I explained this to her today. She will try to keep as well hydrated as possible. She may use Biotene mouthwash and toothpaste as needed and pay regular visits to the dentist. Assessment & Plan (12/03/2017 2:09 PM EDT): Patient xerostomia is well-controlled on Evoxac at 30 mg 3 times daily but is no longer on her insurance Formulary so after full discussion was and benefits we will give her a trial of 7.5 mg of pilocarpine 3 times daily and she will let me know how this works in the next 7-10 days. Primary osteoarthritis of both knees 09/02/2017 Assessment & Plan (01/31/2024 3:44 PM EDT): Joint protection, energy conservation. Gentle, regular exercise routine. Avoid falls, injuries, overuse. Keep body weight in ideal range for his height. He may benefit from topical cream such as Arnica, Biofreeze, Aspercreme versus medicated patches such as salonpas, icy hot patch 2-3 times daily and if necessary at bedtime x 3 weeks. On her request I agreed to inject her right knee with long acting Kenalog and lidocaine mixture: Procedure: After an informed written consent, under sterile conditions using Ethyl chloride spray for local anesthesia I have injected 40 mg Kenalog and 2 cc 1% Lidocaine into Right knee from infero-medial approach uneventfully. Details of post-procedure care were explained to the patient in the office and given in writing. Provider: Radha Griffith MD Patient: Zoe Weinstein : 1955 Date: 01/31/2024 Assessment & Plan (11/20/2023 12:47 PM EDT): Joint protection, energy conservation. Gentle, regular exercise routine. Avoid falls, injuries, overuse. Keep body weight in ideal range for his height. He may benefit from topical cream such as Arnica, Biofreeze, Aspercreme versus medicated patches such as salonpas, icy hot patch 2-3 times daily and if necessary at bedtime x 3 weeks. Procedure: After an informed oral consent, under sterile conditions using Ethyl chloride spray for local anesthesia I have injected 40 mg Kenalog and 2 cc 1% Lidocaine into Right knee from infero-lateral approach uneventfully. Details of post-procedure care were explained to the patient in the office and given in writing. Provider: Radha Griffith MD Patient: Zoe Weinstein : 1955 Date: 11/20/2023 Assessment & Plan (10/01/2023 1:30 PM EDT): R > L knee sxs, worse in the past 2 wks approximately, possibly due to need to hold meloxicam for inpatient tx of renal stones. She has been able to resume meloxicam, which she is tolerating. Intra-articular steroid injection to right knee today as detailed in procedure note (most recent prior injection 12/2022). She will f/u with Dr. Lemons as scheduled. Assessment & Plan (12/26/2022 4:43 PM EDT): Joint protection, energy conservation. Gentle, regular exercise routine. Avoid falls, injuries, overuse. Keep body weight in ideal range for his height. He may benefit from topical cream such as Arnica, Biofreeze, Aspercreme versus medicated patches such as salonpas, icy hot patch 2-3 times daily and if necessary at bedtime x 3 weeks. Procedure: After an informed oral consent, under sterile conditions using Ethyl chloride spray for local anesthesia I have injected 40 mg Kenalog and 2 cc 1% Lidocaine into Right knee from infero-lateral approach uneventfully. Details of post-procedure care were explained to the patient in the office and given in writing. Provider: Radha Griffith MD Patient: Zoe Weinstein : 1955 Date: 12/26/2022 Assessment & Plan (05/16/2022 2:06 PM EST): Procedure: After an informed oral consent, under sterile conditions using Ethyl chloride spray for local anesthesia I have injected 40 mg DepoMedrol and 2 cc 1% Lidocaine into Right knee from lateral approach uneventfully. Details of post-procedure care were explained to the patient in the office and given in writing. Provider: Radha Griffith MD Patient: Zoe Weinstein : 1955 Date: 05/16/2022 Assessment & Plan (06/11/2021 10:52 PM EST): Using Mobic with relief for pain control Will continue . BP stable, labs today CBC and CMP Assessment & Plan (02/09/2021 8:49 AM EDT): Acute painful or recurrent flare will be treated with injection of corticosteroid injection into both knees today. Also meloxicam will be increased from 7.5 daily to 15 mg daily. Laboratory work was reviewed. No visits with results within 3 Month(s) from this visit. Latest known visit with results is: Hospital Outpatient Visit on 11/04/2019 Component Date Value Ref Range Status URIC ACID 11/04/2019 4.6 2.4 - 7.0 mg/dL Final FOLIC ACID 11/04/2019 >20.0* 4.2 - 19.9 ng/mL Final VITAMIN B12 11/04/2019 684 232 - 1,245 pg/mL Final WBC 11/04/2019 7.82 4.00 - 11.00 K/uL Final Note Reference Range updates to all CBC and Differential results. RBC 11/04/2019 3.77 3.72 - 5.30 M/uL Final HGB 11/04/2019 11.8 11.4 - 15.9 g/dL Final Note updated Reference Ranges for all CBC and Differential results. HCT 11/04/2019 36.0 34.2 - 46.8 % Final PLT 11/04/2019 235 140 - 430 K/uL Final MCV 11/04/2019 95.5 78.0 - 97.0 fL Final MCH 11/04/2019 31.3 25.0 - 33.0 pg Final MCHC 11/04/2019 32.8 32.0 - 36.0 g/dL Final RDW 11/04/2019 14.6 11.0 - 16.0 % Final MPV 11/04/2019 11.9 8.4 - 12.8 fl Final NRBC 11/04/2019 0.00 0 /100 WBCs Final ABSOLUTE NRBC 11/04/2019 0.00 0 K/uL Final DIFF METHOD 11/04/2019 Auto Final NEUTS 11/04/2019 45.7 43.0 - 75.0 % Final LYMPHS 11/04/2019 39.9 18.2 - 47.4 % Final MONOS 11/04/2019 7.4 4.00 - 11.00 % Final EOS 11/04/2019 6.1 0.0 - 8.0 % Final BASOS 11/04/2019 0.6 0.0 - 2.0 % Final Granulocytes, immature (%) 11/04/2019 0.3 0.0 - 0.9 % Final ABSOLUTE NEUTS 11/04/2019 3.57 1.80 - 7.70 K/uL Final ABSOLUTE LYMPHS 11/04/2019 3.12* 1.00 - 3.10 K/uL Final ABSOLUTE MONOS 11/04/2019 0.58 0.20 - 0.80 K/uL Final ABSOLUTE EOS 11/04/2019 0.48 0.00 - 0.80 K/uL Final ABSOLUTE BASOS 11/04/2019 0.05 0.00 - 0.09 K/uL Final Granulocytes, immature 11/04/2019 0.02 0.00 - 0.05 K/uL Final SODIUM 11/04/2019 145 133 - 146 mmol/L Final POTASSIUM 11/04/2019 4.2 3.3 - 5.1 mmol/L Final CHLORIDE 11/04/2019 109* 96 - 108 mmol/L Final CO2 11/04/2019 24 21 - 35 mmol/L Final BUN 11/04/2019 21* 6 - 19 mg/dL Final CREATININE 11/04/2019 0.70 0.5 - 1.5 mg/dL Final GLUCOSE 11/04/2019 96 70 - 99 mg/dL Final ALBUMIN 11/04/2019 4.3 3.9 - 4.8 g/dL Final TOTAL PROTEIN 11/04/2019 7.0 6.5 - 8.0 g/dL Final CALCIUM 11/04/2019 9.2 8.4 - 10.3 mg/dL Final ALKALINE PHOSPHATASE 11/04/2019 76 39 - 117 U/L Final TOTAL BILIRUBIN 11/04/2019 0.3 0.0 - 1.2 mg/dL Final AST 11/04/2019 30 0 - 37 U/L Final ALT 11/04/2019 16 0 - 40 U/L Final GLOBULIN 11/04/2019 2.7 1 - 4.8 g/dL Final EGFR 11/04/2019 90 >59 mL/min/1.73m2 Final If patient is black, multiply result by 1.159. Estimated glomerular filtration rate calculated using the CKD-EPI equation. ANION GAP 11/04/2019 16 10 - 20 mmol/L Final 25 OH VIT D (TOTAL) 11/04/2019 39 30 - 60 ng/mL Final C REACTIVE PROTEIN 11/04/2019 1.2 0.0 - 4.0 mg/L Final TSH 11/04/2019 1.58 0.27 - 4.20 uIU/mL Final Assessment & Plan (07/05/2020 3:20 PM EST): Inject left and right knees today with corticosteroid and lidocaine. Assessment & Plan (05/02/2020 12:32 PM EST): Continue quadricep strengthening and well fitting supportive shoes with good shock ab for articular steroids in 3 months if necessary. Sorption. Assessment & Plan (03/30/2020 11:47 AM EDT): Bilateral intra-articular cortisone injections today. Assessment & Plan (08/05/2019 9:29 AM EST): Bilateral medial compartment and patellofemoral osteoarthritis of the knees will be treated today with intra-articular cortisone injections, well fitting supportive shoes with good shock absorption, weight maintenance and quadricep strengthening. Assessment & Plan (05/06/2019 10:28 AM EST): Limon femoral and medial compartment osteoarthritis will continue to be treated with Tylenol, well fitting supportive shoes with good shock absorption and gentle at home daily quadricep strengthening which she agrees with. Assessment & Plan (07/07/2018 12:11 PM EST): Since undergoing bilateral Synvisc injections earlier in the year she has improved with pain and stiffness and making transfers as well as her tolerance for weightbearing. Both she and I feel that the Visco supplementation procedure was successful. Assessment & Plan (04/09/2018 12:33 PM EDT): Patient will receive her third and final Synvisc injections today. She will continue quads strengthening, well fitting supportive shoes with good shock absorption and weight maintenance. Medications will remain unchanged. Assessment & Plan (12/03/2017 2:09 PM EDT): She is having a flare of pain from tricompartmental osteoarthritis. She states that while the corticosteroids give her about 3 months relief she received about 6-12 months of relief from the Synvisc so elected that again. We'll set that up for the fall. Assessment & Plan (09/02/2017 12:07 PM EDT): Patient is having a flare up of tricompartmental osteoarthritis in both knees. She denies any other arthralgias except for continued low back pain without radiation. We talked about well fitting shoes, quadriceps strengthening, and local injection therapy. Osteoporosis 09/02/2017 Assessment & Plan (04/01/2025 10:20 PM EDT): Continue daily calcium and vitamin D supplementation, fall and fracture prevention strategies in addition to daily weightbearing exercises 30-45 minutes. Procedure: After an informed oral consent, under sterile conditions using I have injected 60 mg Prolia into Left arm uneventfully. Details of post-procedure care were explained to the patient in the office and given in writing. Provider: Radha Griffith MD Patient: Zoe Weinstein : 1955 Date: 04/01/2025 OFFICE SUPPLY Assessment & Plan (08/06/2024 4:35 PM EST): Continue daily calcium and vitamin D supplementation, fall and fracture prevention strategies in addition to daily weightbearing exercises 30-45 minutes. Procedure: After an informed oral consent, under sterile conditions using I have injected 60 mg Prolia into Left arm uneventfully. Details of post-procedure care were explained to the patient in the office and given in writing. Provider: Radha Griffith MD Patient: Zoe Weinstein : 1955 Date: 08/06/2024 OFFICE SUPPLY Assessment & Plan (01/31/2024 3:25 PM EDT): Continue daily calcium and vitamin D supplementation, fall and fracture prevention strategies in addition to daily weightbearing exercises 30-45 minutes. Procedure: After an informed oral consent, under sterile conditions using I have injected 60 mg Prolia into Left arm uneventfully. Details of post-procedure care were explained to the patient in the office and given in writing. Provider: Radha Griffith MD Patient: Zoe Weinstein : 1955 Date: 01/31/2024 OFFICE SUPPLY Assessment & Plan (11/24/2023 11:47 AM EDT): Continue daily calcium and vitamin D supplementation, fall and fracture prevention strategies in addition to daily weightbearing exercises 30-45 minutes. Return for every 6 months subcutaneous Prolia on 01/17/2024. Assessment & Plan (07/18/2023 2:50 PM EST): Procedure: After an informed oral consent, under sterile conditions I have injected 60 mg Prolia subcutaneously into Left arm uneventfully. Details of post-procedure care were explained to the patient in the office and given in writing. Provider: Radha Griffith MD Patient: Zoe Weinstein : 1955 Date: 07/18/2023 Assessment & Plan (12/13/2021 9:20 PM EDT): 65 yo post menopausal female with OP Most recent Dexa 03/2018 showed Osteoporosis of left femoral neck and Left proximal femur Also reports MRI showed fracture in right hip ,will need to obtain MRI for review. Pt ambulation with full WB today Will check labs to r/o secondary causes of OP Prolia injection today- see procedure note Continue Ca 1200 and Vit D 2-3000 IU /day supplementation daily Fall prevention reviewed. Encouraged pt to use a cane D ocumentation to prescribe Prolia for postmenopausal osteoporosis at high risk for fracture should include but is not limited to the following: ; Are supplemental Calcium & Vitamin D prescribed?: yes ; Patient's 66 yo female ; Menopausal Status: post menopausal ; Is there documentation supporting the diagnosis of Osteoporosis?:yes ; Previous treatment of Osteoporosis: No Because of a history of active gastroesophageal reflux disease and her use of chronic proton pump inhibitor, I do not think she is a candidate for oral bisphosphonates which can aggravate esophagitis and even lead to esophageal ulceration ; F/u 6 months for next Prolia Assessment & Plan (06/11/2021 10:44 PM EST): Most recent Dexa 03/2018 Osteoporosis of left femoral neck and Left proximal femur Prolia injection today CBC CMP today F/u 6 months for next Prolia Assessment & Plan (02/09/2021 8:50 AM EDT): Last vitamin D level was therapeutic. Fall and fracture prevention strategies were discussed. New bone densitometry is ordered. Pharmacologic intervention will likely be necessary and this will be discussed with the molding cutter on the next office visit. Assessment & Plan (01/16/2021 8:48 AM EDT): Being treated with Prolia. Next due in May. Tolerated well. Recheck vitamin D and bone density study. Assessment & Plan (11/15/2020 11:18 AM EDT): Administer Prolia today. Continue vitamin D. Fall and fracture prevention strategies discussed. Reviewed previous bone density. Assessment & Plan (05/02/2020 12:34 PM EST): He has bone density reviewed. New bone densitometry ordered. Vitamin D level has been therapeutic and she will remain on 1000 units of vitamin D3 per day. Fall and fracture prevention strategies discussed and 60 mg of Prolia was administered today. Assessment & Plan (08/05/2019 9:29 AM EST): Bone densitometry reviewed. Due for Prolia injection in October. Last one given in April without problem. Continue vitamin D3. Fall and fracture prevention strategies discussed. Assessment & Plan (05/06/2019 10:27 AM EST): Patient has osteoporosis. The mean value for the lumbar spine is osteopenic. She has experienced a fracture. She is at high risk for another fracture. She will continue on vitamin D3 and we will measure vitamin D level. She will receive her second Prolia injection today. She will have another bone densitometry in 2020. Fall and fracture prevention strategies discussed. Assessment & Plan (07/07/2018 12:14 PM EST): She has a significant decrease in her bone scores from 2016 to her bone density in December of last year. While the mean lumbar T score was osteopenic at -1.7 the bilateral T score in the hips was -2.8 which was osteoporotic and there was a 11.9% decrease in the mean spinal density and an 8.1% decrease in the left femur density compared to her previous scan. I feel that she is at high risk for fall and fracture. Because of a history of active gastroesophageal reflux disease and her use of chronic proton pump inhibitor, I do not think she is a candidate for oral bisphosphonates which can aggravate esophagitis and even lead to esophageal ulceration. After full discussion of risks and benefits I feel that she is a better candidate for Prolia injections every 6 months. She agrees to this. She will stay on vitamin D 3 1000 units daily and we will measure a 25 hydroxy vitamin D level today along with a full chemistry profile and CBC. Risks and benefits were discussed. When it is approved she will come in for her injection. Assessment & Plan (12/03/2017 2:09 PM EDT): Fall and fracture prevention strategies and maintenance of vitamin D3 at 1000 units daily was discussed in detail. She will have another bone densitometry. I will call her with these results. Assessment & Plan (09/02/2017 12:07 PM EDT): Stable osteopenia. She will have another bone densitometry next year. She will stay on 1000 units of vitamin D3. Fall and fracture prevention strategies were discussed. Resolved Problems Problem Noted Date Diagnosed Date Resolved Date Class 1 obesity due to exces s calories with serious comorbidity and body mass index (BMI) of 31.0 to 31.9 in adult 12/26/2022 11/24/2023 Assessment & Plan (12/26/2022 4:46 PM EDT): Continue diligent portion control. Limit concentrated sugars, saturated fats and calories in the diet. Keep well-hydrated. If unable to achieve expected goal consider formal dietary/nutritional support. 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; Fibromyalgia; Spinal enthesopathy of lumbar region; Raynaud's phenomenon without gangrene; Gastroesophageal reflux disease, unspecified whether esophagitis present; Class 1 obesity with serious comorbidity and body mass index (BMI) of 30.0 to 30.9 in adult, unspecified obesity type; Aspirin long-term use; Spinal stenosis of lumbosacral region; Encounter for monitoring denosumab therapy 03/22/2025 Telephone [facility] [address] [place] [address] [place] [id number] Radha Griffith MD Appointment 03/18/2025 Telephone [facility] [address] [place] [address] [place] [id number] Radha Griffith MD 03/16/[address] [place] [address] Ronda Mendoza MD, MPH Medication Refill 02/12/2025 Refill [facility] [address] [place] [address] [place] [id number] Radha Griffith MD Medication Refill from Last 3 Months Immunizations Immunization Administration Dates Next Due Influenza Quadrivalent Preservative Free IM 03/17 Social History Tobacco Use Types Packs/Day Years Used Date Smoking Tobacco: Former Smokeless Tobacco: Never Education Answer Date Recorded Are you interested in more education? Not on wei e 10/12/2022 Are you concerned about learning? Not on file 10/12/2022 No 10/12/2022 No 10/12/2022 Digital Access Answer Date Recorded No 11/09/2022 No 11/09/2022 Reliable internet access at home? Not on file 11/09/2022 Device with a working camera? Not on file Comments Unknown Sex and Gender Information Value Date Recorded Sex Assigned at Not on file Legal Sex Female 8:33 PM EDT Gender Identity Not on file Sexual Orientation Not on file Last Filed Vital Signs Vital Sign Reading Time Taken Comments Blood Pressure 112/66 04/01/2025 2:36 PM EDT Pulse 83 04/01/2025 2:36 PM EDT Temperature 36.1 C (97 F) 07/05/2020 3:07 PM EST Respiratory Rate 16 05/02/2023 11:22 AM EST Oxygen Saturation 94% 04/01/2025 2:36 PM EDT Inhaled Oxygen Concentration - - Weight 73.9 kg (163 lb) 04/01/2025 2:36 PM EDT Height 154.9 cm (5' 1 ) 04/01/2025 2:36 PM EDT Body Mass Index 30.8 04/01/2025 2:36 PM EDT Plan of Treatment Upcoming Encounters Date Type Department Care Team (Late st Contact Info) Description 09/14/2025 3:45 PM EDT Appointment [facility], Bone Density - [address] [address] Radha Griffith MD [address] [place] [address], [address] [address] 10/01/2025 10:00 AM EDT Office Visit [facility] Rheumatology [address] [place] [address] Radha Griffith MD [address] [place] [address], [address] [address] Health Maintenance Due Date Last Done Comments DEPRESSION SCREENING 1965 SMOKING Hx and SMOKELESS TOBACCO SCREENING 1966 HEPATITIS C SCREENING 1971 COLOGUARD 1998 COLONOSCOPY 1998 COLORECTAL CANCER SCREENING 1998 FIT TEST 1998 FOBT 1998 SIGMOIDOSCOPY 1998 VIRTUAL COLONOSCOPY 1998 MAMMOGRAM 02/22/2012 02/21/2010 ZOSTER VACCINES (2 of 2) 04/12/2021 02/15/2021 INFLUENZA VACCINE (#1) 2025 , 03/19/2022, 02/15/2021, Additional history exists COVID-19 VACCINE ( season) 2025 06/24/2024, 03/19/2022, 09/13/2021, Additional history exists BLOOD PRESSURE 09/30/2025 04/01/2025 CREATININE LEVEL 03/30/2026 03/30/2025, 03/2025, 08/06/2024, Additional history exists POTASSIUM LEVEL 03/30/2026 03/30/2025, 07/19, 01/31/2024, Additional history exists LIPID PANEL 09/09/2029 09/09/2024, 09/20/2020 Adult Td,Tdap Booster 08/22/2032 08/22/2022 , 11/15/2018, 05/14/2012 OSTEOPOROSIS SCREENING INITIAL (ONE-TIME) Completed 04/03/2021, 12/25/2017 PNEUMOCOCCAL VACCINES (50+ years) Completed 08/22/2022, 08/11/2018, 11/02/2016, Additional history exists RSV VACCINE Completed 06/24/2024 HEPATITIS A VACCINES Aged Out No long er eligible based on patient's age to complete this topic HIB VACCINES Aged Out No longer eligi ble based on patient's age to complete this topic MENINGOCOCCAL VACCINES (ACWY) Aged Out No longer eligible based on patient's age to complete this topic MENINGOCOCCAL VACCINES (B) Aged Out N o longer eligible based on patient's age to complete this topic Medical Devices Not on file Procedures Procedure Name Priority Date/Time Associated Diagnosis Comments BASIC METABOLIC PANEL (BMP) Routine 03/30/2025 11:23 AM EDT CBC Routine 03/26/2025 11:22 AM EDT COMPREHENSIVE METABOLIC PANEL (CMP) Routine 03/26/2025 11:22 AM EDT BD DXA SPINE AND HIP WITH FOREARM Routine 04/03/2021 1:21 PM EDT Osteopenia, unspecified location from Last 3 Months or Most Recently Relevant to Health Maintenance Results * Basic metabolic panel (03/30/2025 11:23 AM EDT) [facility] Provider MD LAB BLOOD BKR ORDERABLES Final Result * Comprehensive metabolic panel (03/26/2025 11:22 AM EDT) [facility] Provider MD LAB BLOOD BKR ORDERABLES Final Result * CBC (03/26/2025 11:22 AM EDT) [facility] Provider MD LAB BLOOD BKR ORDERABLES Final Result * BD DXA SPINE AND HIP WITH FOREARM (04/03/2021 1:21 PM EDT) Anatomical Region Laterality Modality Bone Density Bone Density 04/03/2021 1:39 PM EDT Impressions 04/03/2021 1:43 PM EDT Osteoporosis based on the total left hip density POS -[id number] Narrative 04/03/2021 1:43 PM EDT This is a 65-year-old woman who reports a 3 inches perceived height loss. No history of steroid use, recent hormone therapy or calcium supplementation. Comparison : . The L1 and L2 (lower lumbar fusion), both hips and the left forearm were evaluated and felt to be technically adequate. Total bone mineral density in the L1 and L2 vertebral bodies was calculated at 1.008 g/cm2 with a T score of 0.3, and a Z-score of 2.1. This falls within the WHO classification of normal . Density of the right femoral NECK is 0.688g/cm2, T score -1.5, Z score 0.2. Density of the TOTAL right proximal femur is 0.694 g/cm2; T-score -2.0; Z-score 0.7. This falls within the WHO classification of osteopenia . Density of the left femoral NECK is 0.565g/cm2, T score -2.6, Z score -0.9. Density of the TOTAL left proximal femur is 0.602 g/cm2; T-score -2.8; Z-score -1.4. This falls within the WHO classification of osteoporosis . Total bone mineral density in the left forearm was calculated at 0.443gm/cm2 with a T-score of -2.4, and a Z score of -0.5, falling within the WHO classification of osteopenia. Procedure Note José Luis Hyde MD - 04/03/2021 This is a 65-year-old woman who reports a 3 inches perceivedheight loss. No history of steroid use, recent hormone therapy or calciumsupplementation. Comparison : . The L1 and L2 (lower lumbar fusion), both hips and the left forearm wereevaluated and felt to be technically adequate. Total bone mineral density in the L1 and L2 vertebral bodies wascalculated at 1.008 g/cm2 with a T score of 0.3, and a Z-score of 2.1. This falls within the WHO classification of normal . Density of the right femoral NECK is 0.688g/cm2, T score -1.5, Z score0.2. Density of the TOTAL right proximal femur is 0.694 g/cm2; T-score -2.0;Z-score 0.7. This falls within the WHO classification of osteopenia . Density of the left femoral NECK is 0.565g/cm2, T score -2.6, Z score-0.9. Density of the TOTAL left proximal femur is 0.602 g/cm2; T-score -2.8;Z-score - 1.4. This falls within the WHO classification of osteoporosis . Total bone mineral density in the left forearm was calculated at0.443gm/cm2 with a T-score of -2.4, and a Z score of -0.5, falling withinthe WHO classification of osteopenia. IMPRESSION: Osteoporosis based on the total left hip density POS -[id number] us Grayson FINLEY BD BONE DENSITY DEXA F inal Result from Last 3 Months or Most Recently Relevant to Health Maintenance Insurance MEDICARE PART A & B HEALTH MEDICARE PART A & [place] [address] [place], [place] [address]HEALTH MEDICARE PART A & B Member Subscriber Plan / Payer (Ef fective 1994-) Name:Zoe Weinstein Member ID:[id number] Relation to Subscriber:Self Name:Zoe Weinstein Subscriber ID:[id number] Payer ID:[id number] Group ID:Not on file Type:Medicare Address: [employer] [address] [place], [place] [address]HEALTH MEDICARE PART A & B [place] B [facility] PART A & [place] [facility] [facility] MEDICARE PART A & B [facility] [place] [phone] Care Teams Network Security Engineer Relationship Specialty Start Date End Date Pcp, Unknown PCP - General 03/23/25 Additional Source Comments The information contained in this document represents components of the legal health record. It is not the complete legal health record.[facility]
--- OUTSIDE RECORDS SUMMARY | 2025-04-26 14:58 | XMS_ITS | Encounter Summary ---
Author Organization [facility] Address [address] [place] [address] Phone Care Team Providers Care Train Master Name Role Phone Kapil Nesbitt MD Primary Care Provider [phone] Mel Joseph CNP Primary Care Provider + Pcp, Unknown Primary Care Provider Unavailabl e Encounter Details Date Type Department Care Team (Late st Contact Info) Description 12/15/2019 Ancillary Orders [facility],Outside Imaging [address] [place] [address] System, Provider Not In, [place] [address] Social History Tobacco Use Types Packs/Day Years Used Date Smoking Tobacco: Former Smokeless Tobacco: Never Comments Unknown Sex and Gender Information Value Date Recorded Sex Assigned at Not on file Legal Sex Female 8:33 PM EDT Gender Identity Not on file Sexual Orientation Not on file documented as of this encounter Plan of Treatment Upcoming Encounters Date Type Department Care Team (Late Contact Info) Description 09/14/2025 3:45 PM EDT Appointment [facility], Bone Density - [facility] [address] [place] [address] Radha Griffith MD [address] [facility], [address] [place] [address] 10/01/2025 10:00 AM EDT Office Visit [facility] Rheumatology [address] [place] [address] Radha Griffith MD [address] [facility], [address] [place] [address] [email or web address] documented as of this encounter Results * MRI Spine (Bone) Outside (No Interpretation) (12/24/2014 12:00 AM EDT) Narrative SYSTEMGENERATED, DOCUMENTATION - 12/15/2019 11:25 AM EDT This study is for PACS storage only and not for interpretation. us Provider Not In System PhD IMG OUTSIDE IMAGING W /OUT INTERPRETATION Final Result documented in this encounter Visit Diagnoses Not on filedocumented in this encounter Care Teams Train Master Relationship Specialty Start Date End Date Kapil Nesbitt MD [address] [facility] [address] [place] [address] PCP - General Internal Medicine 12/12/19 11/19/23 Mel Joseph CNP [address] [facility], [address] [place] [address] [email or web address] PCP - General Nurse Practitioner 01/31/24 10/22/24 Pcp, Unknown PCP - General 03/23/25 documented as of this encounter Additional Source Comments The information contained in this document represents components of the legal health record. It is not the complete legal health record.[facility]
--- OUTSIDE RECORDS SUMMARY | 2025-04-26 14:58 | XMS_ITS | Encounter Summary ---
Author Organization [facility] Address [address] [place] [address] [address] [place] [address] Phone Care Team Providers Care Plant Operator/Shift Supervisor Name Role Phone Pcp, Unknown Primary Care Provider Unavailabl e Encounter Details Date Type Department Care Team (Late st Contact Info) Description 04/12/2025 Orders Only [facility] Rheumatology [address] [place] [address] Provider, MD [place] [address] Social History Tobacco Use Types Packs/Day Years [...] Info) Description 09/14/2025 3:45 PM EDT Appointment [facility], Bone Density - [facility] [address] [place] [address] Radha Griffith MD [address] [facility], [address] [place] [address] 10/01/2025 10:00 AM EDT Office Visit [facility] Rheumatology [address] [place] [address] Radha Griffith MD [address] [facility], [address] [place] [address] documented as of this encounter Procedures Procedure Name Priority Date/Time Associated Diagnosis Comments BASIC METABOLIC PANEL (BMP) Routine 03/30/2025 11:23 AM EDT COMPREHENSIVE METABOLIC PANEL (CMP) Routine 03/26/2025 11:22 AM EDT CBC Routine 03/26/2025 11:22 AM EDT documented in this encounter Results * Basic metabolic panel (03/30/2025 11:23 AM EDT) Historical Provider MD LAB BLOOD BKR ORDERABLES Final Result * CBC (03/26/2025 11:22 AM EDT) Historical Provider MD LAB BLOOD BKR ORDERABLES Final Result * Comprehensive metabolic panel (03/26/2025 11:22 AM EDT) Historical Provider MD LAB BLOOD BKR ORDERABLES Final Result documented in this encounter Visit Diagnoses Not on filedocumented in this encounter Care Teams Plant Operator/Shift Supervisor Relationship Specialty Start Date End Date Pcp, Unknown PCP - General 03/23/25 documented as of this encounter Additional Source Comments The information contained in this document represents components of the legal health record. It is not the complete legal health record.[facility]
--- OUTSIDE RECORDS SUMMARY | 2025-04-26 14:58 | XMS_ITS ---
Author Name [facility] Organization Unknown Care Team Organization Name Specialty Phone Email Start Date End Da kwaku [facility] 02/03/2025 03/29/2025 [facility] KVNG CRUZ Primary Care 11/23/2022 02/03/20 24
--- OUTSIDE RECORDS SUMMARY | 2025-04-26 14:58 | XMS_ITS | Clinical Summary ---
Author Organization [facility] Address [address] [place] [address] Phone Care Team Providers Care Cooling Pipe Inspector Name Role Phone Sylvia Holt Primary Care Provider [phone] Allergies Active Allergy Reactions Criticality Noted Date Comments Adhesive Tape-Silicones 11/05/2013 Other Reaction(s): Rash/Dermatitis Ciprofloxacin Other 02/04/2013 Codeine 07/19/2008 Divalproex 07/19/2008 Divalproex Sodium 08/16/2023 Levofloxacin 08/16/2023 Metoclopramide 07/19/2008 Sulfa (Sulfonamide Antibiotics) 02/12/2018 Medications aspirin 81 mg EC tablet Take by mouth. Activ e atorvastatin (LIPITOR) 20 mg tablet Take 1 tablet (20 mg total) by mouth 1 (one) time each day. 024 Active buPROPion XL (WELLBUTRIN XL) 300 mg [...] mouth 1 (one) time each day. Active denosumab (Prolia) 60 mg/mL syringe syringe Inject 1 mL (60 mg total) under the skin every 6 (six) months. Active denosumab (Prolia) 60 mg/mL syringe syringe Inject 1 mL (60 mg total) under the skin. Active diazePAM (VALIUM) 5 mg tablet Active diclofenac (VOLTAREN) 1 % topical gel Apply 4 g topically 2 (two) times a day. Active Boostrix Tdap 2.5-8-5 Lf-mcg-Lf/0.5mL vaccine Active eszopiclone (LUNESTA) 1 mg tablet Active fosfomycin (MONUROL) 3 gram packet Active gabapentin (NEURONTIN) 100 mg capsule Take 1 capsule (100 mg total) by mouth at bedtime. Active Linzess 290 mcg capsule Take 1 capsule (290 mcg total) by mouth 1 (one) time each day. Active LORazepam (ATIVAN) 1 mg tablet Take 1 tablet (1 mg total) by mouth if needed. Active meloxicam (MOBIC) 15 mg tablet Active nitrofurantoin, macrocrystal-mono hydrate, (MACROBID) 100 mg capsule Active omeprazole (PriLOSEC) [address] capsule Take 1 capsule (40 mg total) by mouth 1 (one) time each day. Active omeprazole (PriLOSEC) [address] capsule Active ondansetron ODT (ZOFRAN-ODT) 4 mg disintegrating tablet TAKE 1 TABLET BY MOUTH 3 TIMES A DAY NEEDED FOR NAUSEA Active ondansetron (ZOFRAN) 4 mg tablet Take 1 tablet (4 mg total) by mouth. Active pregabalin (LYRICA) 150 mg capsule Take 1 capsule (150 mg total) by mouth 3 (three) times a day. Active tiZANidine (ZANAFLEX) 4 mg tablet Take 1 tablet (4 mg total) by mouth every 6 (six) hours if needed. Active zolpidem (AMBIEN) 5 mg tablet Take 1 tablet (5 mg total) by mouth 1 (one) time each day. 023 Active meloxicam (MOBIC) 15 mg tablet Take 1 tablet (15 mg total) by mouth 1 (one) time each day. Active multivitamin (MULTIPLE VITAMINS ORAL) Take 2 tablets by mouth 1 (one) time each day. Active metoprolol succinate (TOPROL-XL) 50 mg 24 hr tabletIndications :Essential (primary) hypertension TAKE 1 TABLET BY MOUTH EVERY DAY 90 tablet 2 024 Active ondansetron (ZOFRAN) 4 mg tablet Take 1 tablet (4 mg total) by mouth every 8 (eight) hours if needed for nausea. for up to 10 days. 024 Active oxyCODONE (ROXICODONE) 5 mg immediate release tablet Take 1 tablet (5 mg total) by mouth every 4 (four) hours if needed for severe pain. Active isosorbide mononitrate (IMDUR) 30 mg 24 hr tablet TAKE 1 TABLET BY MOUTH DAILY 90 tablet 3 024 Active lisinopriL (PRINIVIL,ZESTRIL ) 10 mg tablet TAKE 1 TABLET BY MOUTH 1 (ONE) TIME EACH DAY. DOSE INCREASED 90 tablet 1 025 Active Linzess 72 mcg capsuleIndication s:Constipation, unspecified constipation type TAKE 1 CAPSULE BY MOUTH EVERY DAY 90 capsule 2 025 Active Additional Information Patient not taking.Reported on 04/13/2025 albuterol HFA (PROAIR HFA ; PROVENTIL HFA ; VENTOLIN HFA) 90 mcg/actuation inhalerIndication s:Subacute cough Inhale 2 puffs by mouth 4 (four) times a day if needed for shortness of breath or wheezing (Cough). 54 g 3 025 Active fluticasone-umecl idinium-vilantero l (Trelegy Ellipta) 200-62.5-25 mcg inhalerIndication s:Chronic obstructive pulmonary disease, unspecified COPD type (CMS/HCC V24, CMS/HCC V28) Inhale 1 puff (200 mcg total) by mouth 1 (one) time each day. Rinse mouth with water after use to reduce aftertaste and incidence of candidiasis. Do not swallow. 180 each 3 025 2025 Active montelukast (SINGULAIR) 10 mg tabletIndications :Chronic cough Take 1 tablet (10 mg total) by mouth 1 (one) time each day. at bedtime. 90 tablet 3 025 2025 Active cetirizine (ZyrTEC) 10 mg tabletIndications :Chronic cough Take 1 tablet (10 mg total) by mouth 1 (one) time each day. 30 each 2 025 Active nitroglycerin (NITROSTAT) 0.[address] 1 tablet (0.4 mg total) under the tongue every 5 (five) minutes if needed for chest pain. 25 tablet 2 Active fluticasone propionate (FLONASE) 50 mcg/actuation nasal sprayIndications: Chronic cough USE 2 SPRAYS IN EACH NOSTRIL EVERY DAY-SHAKE GENTLY. CLEAN TIP AND REPLACE CAP AFTER USE. 48 mL 3 025 Active linaCLOtide (Linzess) 72 mcg capsuleIndication s:Chronic idiopathic constipation Take 1 capsule (72 mcg total) by mouth 1 (one) time each day. 90 each 1 025 Active nitroglycerin (NITROSTAT) 0.[address] 1 tablet (0.4 mg total) under the tongue every 5 (five) minutes if needed for chest pain. 022 2024 Discontinued(R eorder) linaCLOtide (Linzess) 72 mcg capsule Take 1 capsule (72 mcg total) by mouth 1 (one) time each day. 2024 Discontinued(R eorder) fluticasone propionate (FLONASE) 50 mcg/actuation nasal sprayIndications: Chronic cough Administer 2 sprays into each nostril 1 (one) time each day. Shake gently. Before first use, prime pump. After use, clean tip and replace cap. 16 g 2 025 2024 Discontinued Active Problems Problem Noted Date Diagnosed Date AI (aortic insufficiency) 12/28/2021 Chest pain 11/25/2020 Overview (08/16/2023): Chest pain Assessment & Plan (04/13/2025 11:31 AM EDT): She does continue to have chest discomfort. Stress test as outlined above without evidence of ischemia. Calcification noted in LAD. She is on aspirin and statin therapy. She will also continue on metoprolol and isosorbide however in light of her ongoing breathlessness we will pursue coronary CT for further evaluation of ischemia. Instructed to call 911 or go to the emergency room should the patient begin to experience chest pain or pressure lasting greater than 10 minutes does not resolve with rest. Orders: ECG [address] Angio Heart w 3D Imaging/Function; Future Assessment & Plan (05/27/2024 7:18 AM [...] Fibromyalgia 03/05/2018 Genital herpes 03/05/2018 Hyperlipidemia 03/05/2018 Assessment & Plan (04/13/2025 11:31 AM EDT): Continue current dose of Lipitor 20 mg to be mindful of dietary fat intake. Last fasting lipid profile revealed an LDL of 44. This is at goal of less than 70. Can consider updating fasting lipid profile prior to her next in office visit was already performed by her PCP. Hypertension 03/05/2018 Assessment & Plan (04/13/2025 11:31 AM EDT): Well-controlled during today's exam with a reading of 130/70. She will continue metoprolol, isosorbide and lisinopril. Educated on the importance of diet lifestyle to help further assist in reducing blood pressure. The patient was encouraged to follow low-salt low-fat diet, make purposeful strides towards weight loss, and engage in routine aerobic exercise as tolerated. Assessment & Plan (05/27/2024 7:18 AM EST): [...] Osteopenia 03/05/2018 Restless legs 03/05/2018 Sjogren's syndrome ([facility] V24) 03/05/2018 COPD (chronic obstructive pu lmonary disease) ([facility] V24, [facility] V28) 02/12/2018 GERD (gastroesophageal reflux disease) 8 Pulmonary nodules 02/12/2018 Depression 11/02/2016 Sciatica 09/07/2009 Encounters Date Type Department Care Team Description 04/22/2025 Telephone [facility] Cardiology [facility] - [facility] [address] [facility] [address] [place] [phone] Naomi Cherry NP 04/15/2025 12:23 PM EDT - 04/15/2025 11:59 PM EDT Hospital Encounter [facility] CT Scan [address] [place] [phone] Encounter for screening for malignant neoplasm of respiratory organs; Nicotine dependence, cigarettes, uncomplicated Discharge Disposition: Home or Self Care 04/15/2025 Telephone Gastroenterology - [address] [facility] 299 [facility] [address] [place] [phone] Tee Sarmiento MD 04/13/2025 11:10 AM EDT Office Visit [facility] Cardiology [facility] - [facility] [address] [facility] [address] [place] [phone] Naomi Cherry NP Chest pain, unspecified type (Primary Dx); Aphasia; Shortness of breath; Primary hypertension; Hyperlipidemia, unspecified hyperlipidemia type 04/12/2025 Telephone [facility] Cardiology [facility] [address] [facility] [address] [place] [address] Kadeem Yang MD 04/05/2025 Telephone [facility] Cardiology [facility] - [facility] [address] [place] [address] Kadeem Yang MD 03/16/2025 Telephone Lung Screening Program - [place] [address] [facility] [address] [place] [phone] Abeba Paz [place] 02/10/2025 Telephone [facility] [address] [facility] [address] [place] [address] Kadeem Yang MD from Last 3 Months Immunizations Immunization Administration Dates Next Due Influenza Quadravalent, 0.5m l (Fluad) 65yo and older 03/19/2022 Influenza Quadravalent, 0.5m l (Fluzone High-dose) 65yo and older 04/05/2021,02/15/2021 Influenza Quadravalent, MDCK , 0.5ml, preservative free (Flucelvax) 6mo and older 06/30/2018 [employer] SARS-CoV-2 COVID-19, mRNA, LNP-S, preservative free 09/13/2021,10/23/2020,10/02/2020 [...] 5 years OTHER SURGICAL HISTORY 04/02/2016 PROCEDURE: DC EGD BALLOON DILATION ESOPHAGUS <30 MM DIAM; COMMENT: Dr. Hoang - esophageal nodules prox esophagus, bx normal. Dilated to 20. ESOPHAGOGASTRODUODENOSCOPY 03/08/2021 PROCEDURE: DC ESOPHAGOGASTRODUODENOSCOPY TRANSORAL DIAGNOSTIC; COMMENT: Dr. Bloom -duodenal [...] Restless legs 03/05/2018 DX:Restless legs Sjogren's syndrome ([facility] V24) 03/05/2018 DX:Sjogren's syndrome ([facility]) Anxiety 03/05/2018 DX:Anxiety Insomnia 03/05/2018 DX:Insomnia Hypertension 03/05/2018 DX:Hypertension Fibromyalgia 03/05/2018 DX:Fibromyalgia COPD (chronic obstructive pu lmonary disease) ([facility]/HCC V24, CMS/HCC V28) 02/12/2018 DX:COPD (chronic o bstructive pulmonary disease) ([facility]) Depression 11/02/2016 DX:Depression GERD (gastroesophageal reflux disease) [...] Sign Reading Time Taken Comments Blood Pressure 130/70 04/13/2025 10:59 AM EDT Pulse 85 01/15/2025 8:42 AM EDT Temperature 36.2 C (97.1 F) 01/15/2025 8:42 AM EDT Respiratory Rate 20 01/15/2025 8:42 AM EDT Oxygen Saturation 97% 04/13/2025 10:59 AM EDT Inhaled Oxygen Concentration - - Weight 73.5 kg (162 lb) 04/13/2025 10:59 AM EDT Height 154.9 cm (5' 1 ) 04/13/2025 10:59 AM EDT Body Mass Index 30.61 04/13/2025 10:59 AM EDT Plan of Treatment Upcoming Encounters Date Type Department Care Team (Late st Contact Info) Description 04/29/2025 1:00 PM EST Office Visit Gastroenterology - [address] [place] [address] [facility] [address] [place] [phone] Codi Lemons PA [address] [facility] [address] [place] [address] 06/15/2025 2:15 PM EST Ancillary Procedure [facility] [address] [place] [address] [place] [address] 11/18/2025 11:30 AM EDT Consult Gastroenterology - [address] [place] [address] [facility] [address] [place] [address] Codi Lemons PA [address] [facility] [address] [place] [address] Health Maintenance Due Date Last Done Comments Zoster Vaccines (2 of 2) 04/12/2021 02/15/2021 Falls Risk Assessment 05/26/2022 Hepatitis C Screening 05/26/2022 Social Influencers of Health Screening 05/26/2022 Breast Cancer Screening 04/08/2024 04/08/2022, 05/14 Colorectal Cancer Screening: Colonoscopy 05/13/2024 05/13/2019, 06/21/2008 Depression Screening 06/17/2024 COVID-19 Vaccine ( season) 2025 06/24/2024, 03/19/2022, 09/13/2021, Additional history exists Influenza Vaccine (#1) 2025 , 03/19/2022, 04/05/2021, Additional history exists Hypertension/CHF/CAD Annual BMP Blood Test 09/09/2025 09/09/2024, 08/06/2024, 01/31/2024, Additional history exists Medicare Annual Wellness Visit 10/28/2025 10/28/2024 Cholesterol Screening (Lipid Panel) 09/09/2029 09/09/2024, 09/20/2020 Osteoporosis Screening (Bone Density Screening) 04/03/2031 04/03/2021, 12/25/2017 DTaP,Tdap,and Td Vaccines (4 - Td or Tdap) 08/22/2032 08/22/2022, 11/15/2018, 05/14/2012 Pneumococcal Vaccine: 50+ Years Completed 08/22/2022, 08/11/2018, 11/02/2016, Additional history exists RSV Immunization Adult Patients [...] Procedure Name Priority Date/Time Associated Diagnosis Comments CT LUNG SCREENING Routine 04/15/2025 12: 33 PM EDT Encounter for screening for malignant neoplasm of respiratory organs Nicotine dependence, cigarettes, uncomplicated ECG 12-LEAD Routine 04/13/2025 11:31 AM EDT Chest pain, unspecified type BASIC METABOLIC PANEL Routine 09/09/2024 10:11 AM EDT WANG (dyspnea on exertion) 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 (CMS/[facility] V24) LIPID PANEL WITH REFLEX TO DIRECT LDL Routine 09/09/2024 10:11 AM EDT Hyperlipemia [facility] SCREENING DIGITAL Routine 04/08/2022 8:22 AM EDT Encounter for screening mammogram for malignant neoplasm of breast COLONOSCOPY Routine 05/13/2019 [facility] DEXA AXIAL SKELETON Routine 12/25/2017 10:37 AM EDT Encounter for screening for osteoporosis from Last 3 Months or Most Recently Relevant to Health Maintenance Results * CT Lung Screening (04/15/2025 12:33 PM EDT) Anatomical Region Laterality Modality Chest Computed Tomogra phy 04/20/2025 11:5 5 AM EST Impressions 04/20/2025 12:06 PM EST No new or suspicious pulmonary nodules. Lung RADS 2-benign. Recommend continued screening with low-dose chest CT in 12 months. -------- FINAL REPORT -------- Dictated By: BOWEN LAGUNA Dictated Date: 04/20/2025 11:55 ET Assigned Physician: BOWEN LAGUNA Reviewed and Electronically Signed By: BOWEN LAGUNA Signed Date: 04/20/2025 12:06 ET Workstation ID: [id number] Transcribed By: Self Edit Transcribed Date: 04/20/2025 11:55 ET Narrative 04/20/2025 12:06 PM EST PROCEDURE: Chest CT INDICATION: Lung cancer screening, current smoker, 55 pack years smoking history TECHNIQUE: Chest CT without contrast. Multi planar reformats were created and interpreted. The examination was performed utilizing dose reduction techniques. Total DLP 164 COMPARISON: 04/01/2024 FINDINGS: LUNGS/PLEURA: Central airways are patent. Emphysema. 3 mm right lower lobe nodule is stable compared to prior. No new or suspicious pulmonary nodules. No pleural effusion or pneumothorax. MEDIASTINUM: Thyroid gland is normal. No mediastinal or hilar lymphadenopathy. Esophagus is normal. Cardiac chambers are normal in size. No pericardial effusion. Moderate coronary artery calcifications. CHEST WALL: No axillary lymphadenopathy or superficial hematoma. UPPER ABDOMEN:Cholecystectomy. BONES: No acute fracture. Scattered degenerative changes seen throughout the bones. Procedure Note Bowen Laguna MD - 04/20/2025 PROCEDURE: Chest CT INDICATION: Lung cancer screening, current smoker, 55 pack years smokinghistory TECHNIQUE: Chest CT without contrast. Multi planar reformats were createdand interpreted. The examination was performed utilizing dose reductiontechniques. Total DLP 164 COMPARISON: 04/01/2024 FINDINGS: LUNGS/PLEURA: Central airways are patent. Emphysema. 3 mm right lowerlobe nodule is stable compared to prior. No new or suspicious pulmonarynodules. No pleural effusion or pneumothorax. MEDIASTINUM: Thyroid gland is normal. No mediastinal or hilarlymphadenopathy. Esophagus is normal. Cardiac chambers are normal insize. No pericardial effusion. Moderate coronary arterycalcifications. CHEST WALL: No axillary lymphadenopathy or superficial hematoma. UPPER ABDOMEN:Cholecystectomy. BONES: No acute fracture. Scattered degenerative changes seen throughoutthe bones. IMPRESSION: No new or suspicious pulmonary nodules. Lung RADS 2-benign. Recommendcontinued screening with low-dose chest CT in 12 months. -------- FINAL REPORT -------- Dictated By: BOWEN LAGUNA Dictated Date: 04/20/2025 11:55 ET Assigned Physician: BOWEN LAGUNA Reviewed and Electronically Signed By: BOWEN LAGUNA Signed Date: 04/20/2025 12:06 ET Workstation ID: [id number] Transcribed By: Self Edit Transcribed Date: 04/20/2025 11:55 ET us Antonietta Adhikari MD IMG CT PROCEDURES Final Result * ECG 12 lead (04/13/2025 11:31 AM EDT) Ventricular Rate ECG 81 BPM GEMUSE Atrial Rate 81 BPM GEMUSE P-R Interval 180 ms GEMUSE QRS Duration 72 ms GEMUSE Q-T Interval 358 ms GEMUSE QTc 415 ms GEMUSE P Wave [place] 38 degrees GEMUSE R [place] 15 degrees GEMUSE T [place] 30 degrees GEMUSE ECG Interpretation Normal sinus rhythm Normal ECG When compared with ECG of 26-MAY-2024 08:57, No significant change was found Confirmed by MD Trey, Kadeem ([id number]) on 04/15/2025 10:00:10 AM GEMUSE 04/13/2025 11:0 6 AM EDT 04/15/2025 10:00 AM EDT us Naomi Cherry NP ECG ORDERABLES Edited Result - Final GEMUSE * Lipid panel with reflex to direct LDL (09/09/2024 10:11 AM EDT) Cholesterol 137 0 - 200 mg/dL LAB CHEMISTRY METHOD 09/09/2024 1:03 PM EDT [facility] Triglycerides 122 0 - 150 mg/dL LAB CHEMISTRY METHOD 09/09/2024 1:03 PM EDT [facility] HDL 69 >=40 mg/dL LAB CHEMISTRY METHOD 09/09/2024 1:03 PM EDT [facility] LDL Calculated 44 0 - 100 mg/dL LAB CHEMISTRY METHOD 09/09/2024 1:03 PM EDT [facility] VLDL Cholesterol Jorge 24.4 mg/dL LAB CHEMISTRY METHOD 09/09/2024 1:03 PM EDT [facility] Non HDL Chol. (LDL+VLDL) 68 <145 mg/dL LAB CHEMISTRY METHOD 09/09/2024 1:03 PM EDT [facility] Chol/HDL Ratio 2.0 0.0 - 4.4 LAB CHEMISTRY METHOD 09/09/2024 1:[address] [facility] Blood Venous blood specimen / Unknown Venipuncture / Unknown 09/09/2024 10:11 AM EDT 09/09/2024 11:32 AM EDT us Naomi Cherry INVESTOR RELATIONS COORDINATOR LAB BLOOD ORDERABLES F inal Result [facility] [address] [place] [address], * (ABNORMAL) Basic metabolic panel (09/09/2024 10:11 AM EDT) Sodium 138 133 - 145 mmol/L LAB CHEMISTRY METHOD 09/09/2024 2:[address] [facility] Potassium 4.5 3.5 - 5.5 mmol/L LAB CHEMISTRY METHOD 09/09/2024 2:[address] [facility] Chloride 110 96 - 110 mmol/L LAB CHEMISTRY METHOD 09/09/2024 2:[address] [facility] CO2 25 21 - 32 mmol/L LAB CHEMISTRY METHOD 09/09/2024 2:[address] [facility] Anion Gap 3 3 - 11 LAB CHEMISTRY METHOD 09/09/2024 2:[address] [facility] Glucose 92 70 - 100 mg/dL LAB CHEMISTRY METHOD 09/09/2024 2:[address] [facility] BUN 23 5 - 25 mg/dL LAB CHEMISTRY METHOD 09/09/2024 2:[address] [facility] Creatinine 0.93 0.50 - 1.10 mg/dL LAB CHEMISTRY METHOD 09/09/2024 2:[address] [facility] eGFR 66 >=60 mL/min/1. 73m2 LAB CHEMISTRY METHOD 09/09/2024 2:[address] [facility] Comment:Calculation based on the Chronic Kidney Disease Epidemiology Collaboration (CKD-EPI) equation refit without adjustment for race. BUN/Creatinine Ratio 24.7 LAB CHEMISTRY METHOD 09/09/2024 2:42 PM EDT [facility] Calcium 8.4(L) 8.5 - 10.5 mg/dL LAB CHEMISTRY METHOD 09/09/2024 2:42 PM EDT [facility] Blood Venous blood specimen / Unknown Venipuncture / Unknown 09/09/2024 10:11 AM EDT 09/09/2024 11:32 AM EDT us Kadeem Yang MD LAB BLOOD ORDERABLES Melinda conway Result [facility] [address] [place] [address], * ADDI SCREENING DIGITAL (04/08/2022 8:22 AM EDT) Anatomical Region Laterality Modality Mammography 04/05/2022 10:3 8 AM EDT Narrative 04/08/2022 8:22 AM EDT [facility] Diagnostic Imaging Department [address] [place] [address] Patient: JSZOE D.O.B./Age/Sex: 1955 - 66 - F Unit#: [id number] Location/Status: SPDIMAM/PRE CLI Mnemonic/Ordering Site: [facility] Ordering Physician: KAPIL NESBITT MD [facility] Screening Digital - 04/07/22 - 1119 EXAM: [facility] Screening Digital EXAM DATE AND TIME: 04/07/2022 11:29 AM HISTORY: Annual screening mammography. Right breast biopsies most recent of which was in 2011. COMPARISON: 05/14/2018 through 02/19/2014 TECHNIQUE: CC and MLO views of both breasts were obtained using full field digital mammography. Exaggerated lateral CC view of the left breast is performed. Bilateral digital breast tomosynthesis was performed in the MLO projection. Computer aided detection with the Syncbak 7.2-H was employed. Examination is technically difficult [...] grouped microcalcifications, or areas of architectural distortion. Bilateral breasts have scattered calcifications. The skin and vascularity are unremarkable. IMPRESSION: Developing asymmetric densities in the posterior right breast requiring spot compression CC and mediolateral view as well as CC tomography. The left breast is stable with no evidence of malignancy. A negative mammogram in the presence of a clinically suspicious palpable abnormality does not preclude the possibility of malignancy or alter the indications for biopsy. BI-RADS: Category 0: Incomplete - Need Additional Imaging Evaluation RECOMMENDATION(S): 1: Special mammographic view(s) needed RIGHT as soon as possible [id number], [id number], 7025F Dictating Physician: BARNEY WOODS MD Electronically Signed by: BARNEY WOODS MD Dic Date/Time: 04/08/22812 Sign date/Time: 04/08/22821 Procedure Note Jana Woods MD - 06/06/2022 [facility] Diagnostic Imaging Department [address] [place] [address] Patient: ZOE WEINSTEIN /Age/Sex: 1955 - 66 - F Unit#: [id number] Location/Status: SPDIMAM/PRE CLI Mnemonic/Ordering Site: [facility] Ordering Physician: KAPIL NESBITT MD Addi Screening Digital - 04/07/22 - 1119 EXAM: [facility] Screening Digital EXAM DATE AND TIME: 04/07/2022 [...] theMLO projection. Computer aided detection with the Syncbak 7.2-H wasemployed. Examination is technically difficult as [...] view(s) needed RIGHT as soon as possible [id number], [id number] 3340F, 7025F Dictating Physician: BARNEY WOODS MD Electronically Signed by: BARNEY WOODS MD Dic Date/Time: 04/08/22812 Sign date/Time: 04/08/22821 Kapil Nesbitt MD IMG BI PROCEDURES Final Result * Colonoscopy (05/13/2019) Colonoscopy No interpretation , abstracted Comment:Dr. Hoang - normal, repeat 5 years Anatomical Region Laterality Modality Other us Historical Provider HEALTH MAINTENANCE Final Result * [facility] DEXA AXIAL SKELETON (12/25/2017 10:37 AM EDT) Anatomical Region Laterality Modality Mammography 12/25/2017 9:34 AM EDT Narrative 12/25/2017 10:37 AM EDT [facility] Diagnostic Imaging Department [address] [place] [address] Patient: ZOE WEINSTEIN Susie /Age/Sex: 1955 - 62 - F Unit#: [id number] Location/Status: SPDIMAM/REG CLI Mnemonic[facility] Ordering Physician: GRAYSON NAPIER MD Addi Dexa Axial Skeleton - 12/25/17 - 1014 HISTORY: The patient is a 62-year-old postmenopausal female with clinical concern for metabolic bone disease. FINDINGS: Dual [...] 80% of that of age matched controls. This yields a T-score of -2.8 and a Z-score of -1.3 which is diagnostic of osteoporosis. IMPRESSION: 1. Osteoporosis. There has been a decrease of 4.5% in bone mineral density in the lumbar spine since the prior examination of 09/01/2015. There has been a decrease of 11.9% in bone mineral density in the right femur and a decrease of 8.1% in bone mineral density in the left femur. 2. FRAX analysis yields a 10-year probability of major osteoporotic fracture of 11.3% and a 10-year probability of hip fracture of 2.3%. Code 04152 Dictating Physician: NENA CHRISTOPHER MD Electronically Signed by: NENA CHRISTOPHER MD Dic Date/Time: 12/25/17 1036 Sign date/Time: 12/25/17 1037 Procedure Note Nena Christopher MD - 06/05/2022 [facility] Diagnostic Imaging Department [address] [place] [address] Patient: ZOE WEINSTEIN Susie WilsonB./Age/Sex: 1955 - 62 - F Unit#: [id number] Location/Status: [facility]/REG CLI Mnemonic[facility] Ordering Physician: GRAYSON NAPIER MD Addi Dexa [...] density of the femurs bilaterally is 0.659 gm/th2nzwmo is 65% of that of young normals [...] probability of hip fracture of 2.3%. Code 05255 Dictating Physician: NENA CHRISTOPHER MD Electronically Signed by: NENA CHRISTOPHER MD Dic Date/Time: 12/25/17 1036 Sign date/Time: 12/25/17 1037 Grayson Napier MD IM BI PROCEDURES Final Resu lt from Last 3 Months or Most Recently Relevant to Health Maintenance Insurance MEDICARE [place]ICA[place] - [place] Care Teams Cooling Pipe Inspector Relationship Specialty Start Date End Date Sylvia Holt PA [address] [phone] PCP - General 09/09/24
--- OUTSIDE RECORDS SUMMARY | 2025-04-26 14:58 | XMS_ITS | Encounter Summary ---
Author Organization [facility] Address [address] [place] [address] Care Team Providers Care Head Strength And Conditioning Coach Name Role Phone Sylvia Holt Primary Care Provider [phone] Reason for Visit * Reason Onset Date Comments Appointment 04/22/2025 Coronary CTA Encounter Details Date Type Department Care Team (Late st Contact Info) Description 04/22/2025 Telephone [facility] - [facility] [address] [facility] [address] [place] [address] Naomi Cherry NP [address] [place] [address] [place] [address] Social History Tobacco Use Types Packs/Day Years [...] on file documented as of this encounter Progress Notes * Maegan Murphy - 04/22/2025 1:35 PM EST Order, demos and ov note have been faxed to [facility] scheduling to schedule pt for a Coronary CTA scan. Waiting for appointment. documented in this encounter Plan of Treatment Upcoming Encounters Date Type Department Care Team (Late st Contact Info) Description 04/29/2025 1:00 PM EST Office Visit Gastroenterology - [address] [place] [address] Codi Lemons PA [address] [place] [address] 06/15/2025 2:15 PM EST Ancillary Procedure [facility] - [address] [place] [address] 11/18/2025 11:30 AM EDT Consult Gastroenterology - [address] [place] [address] Codi Lemons PA [address] [place] [address] documented as of this encounter Visit Diagnoses Not on filedocumented in this encounter Care Teams Head Strength And Conditioning Coach Relationship Specialty Start Date End Date Sylvia Holt PA [address] [place] [phone] PCP - General 09/09/24 documented as of this encounter
--- OUTSIDE RECORDS SUMMARY | 2025-04-26 14:58 | XMS_ITS | Encounter Summary ---
Author Organization [facility] Address [address] [place] [phone] Phone Care Team Providers Care Justice Professor Name Role Phone Kapil Nesbitt MD Primary Care Provider [phone] Mel Joseph CNP Primary Care Provider + Pcp, Unknown Primary Care Provider Unavailabl e Encounter Details Date Type Department Care Team (Late st Contact Info) Description 01/16/2021 Procedure [facility], [address] [address] Social History Tobacco Use Types Packs/Day Years [...] Info) Description 09/14/2025 3:45 PM EDT Appointment [facility], [address] [address] Radha Griffith MD [address] [place] [address] 10/01/2025 10:00 AM EDT Office Visit [facility] Rheumatology [address] [place] [address] Radha Griffith MD [address] [place] [address] documented as of this encounter Visit Diagnoses Not on filedocumented in this encounter Care Teams Justice Professor Relationship Specialty Start Date End Date Kapil Nesbitt MD [address] [facility] [address] [place] [address] PCP - General Internal Medicine 12/12/19 11/19/23 Mel Joseph CNP [address] [place] [address] [address] [place] [address] [email or web address] PCP - General Nurse Practitioner 01/31/24 10/22/24 Pcp, Unknown PCP - General 03/23/25 documented as of this encounter Additional Source Comments The information contained in this document represents components of the legal health record. It is not the complete legal health record.[facility]
== END 2025-04-26 14:35 | disposition home or self-care (01) ==
LOC: HO.HOP 12:54
PROVIDERS: PCP Nurse Practitioner Family; Visit Provider Clinical Nurse Specialist Psychiatric/Mental Health
DX: F43.12 Post-traumatic stress disorder, chronic (principal); F33.1 Major depressive disorder, recurrent, moderate
CPT/HCPCS: 99214

== ENCOUNTER → 2025-04-26 12:54 | Outpatient (BNVA) | payer MEDICARE, MEDICAID, SELFPAY | PROVIDERS: PCP Nurse Practitioner Family; Visit Provider Clinical Nurse Specialist Psychiatric/Mental Health | DX: F43.12 Post-traumatic stress disorder, chronic (principal); F33.1 Major depressive disorder, recurrent, moderate | CPT/HCPCS: 99212 ==